=== PATIENT | male | born 1975 | race Caucasian/White ===

== ENCOUNTER → 2018-09-05 12:45 | Outpatient (CLI) | payer BC, SELFPAY | PROVIDERS: Family Provider Family Medicine; PCP Family Medicine; Referring Provider Family Medicine; Visit Provider Family Medicine | DX: Z46.89 Encounter for fitting and adjustment of other specified devices (principal) ==

== ENCOUNTER → 2018-12-19 | Outpatient (CLI) | payer BC, SELFPAY ==
[2018-10-01 17:47] VITALS: BMI 34.5
[2018-12-19 08:07] LABS: Absolute Lymphocyte Count 0.96 X10^3/ul (0.83-4.51); Absolute Neutrophil Count 2.4 X10^3/uL (2.0-7.7); Basophil# 0.04 X10^3/uL; Eosinophil# 0.03 X10^3/uL; Eosinophils% 0.7 % (0-5); Hematocrit 43.5 % (40-54); Hemoglobin 15.1 g/dl (13.0-16.5); Lymphocyte # 0.96 X10^3/ul (4.0); Lymphocyte % 22.9 % (19-41); Mean Corp Hgb Conc 34.7 g/gl (32-36); Mean Corpuscular Hgb 31.6 pg (27.0-32.0); Mean Platelet Vol. 9.4 fl (6.2-12.0); Monocyte# 0.75 X10^3/uL; Monocyte% 17.9 % (0-10); Neutrophil % 57.3 % (47-70); Platelet Count 115 K/mm3 (150-450); RBC Distribution Width CV 11.7 % (11.6-14.6); RBC Distribution Width SD 38.7 fl (35.1-43.9); Red Blood Count 4.78 M/mm3 (4.6-6.2); White Blood Count 4.2 K/mm3 (4.4-11.0)
[2018-12-19 08:09] LABS: POSITIVE COUNT NO; POSITIVE DIFFERENTIAL NO; POSITIVE MORPHOLOGY NO
[2018-12-19 08:22] LABS: Hemoglobin A1c 4.9 % (4.2-6.3)
[2018-12-19 08:43] LABS: ALB/GLOB Ratio 0.9 RATIO (0.9-2.4); AST(SGOT) 67 U/L (15-37); Alanine Aminotransfer ALT/SGPT 78 U/L (16-61); Albumin, Serum 3.5 g/dL (3.2-5.0); Alkaline Phosphatase 59 U/L (45-117); Anion Gap 9 (5-15); BUN 15 mg/dL (7-18); BUN/Creat Ratio 15.6 RATIO (10-20); Calcium,Total 8.2 mg/dL (8.5-10.1); Chloride 107 mmol/L (98-107); Cholesterol 178 mg/dL (200); Creatinine, Serum 0.96 mg/dL (0.70-1.30); EST Glomerular Filtration Rate 90 mL/min (>60); Est Glom Filt Rate - Afr Amer 109 mL/min (>60); Globulin 3.8 g/dL (2.2-4.2); Glucose 98 mg/dL (74-106); High Density Lipoprotein 31 mg/dL; Potassium 3.8 mmol/L (3.5-5.1); Protein, Total 7.3 g/dL (6.4-8.2); Sodium Level 140 mmol/L (136-145); Triglycerides 164 mg/dL; Very Low Density Lipoprotein 33 mg/dL (5-40)
== END | disposition home or self-care (01) ==
LOC: LAB 06:49
PROVIDERS: Family Provider Internal Medicine; PCP Internal Medicine; Referring Provider Internal Medicine; Visit Provider Internal Medicine
DX: G47.30 Sleep apnea, unspecified (principal); E66.9 Obesity, unspecified
CPT/HCPCS: 36415; 80053; 80061; 83036; 85025

== ENCOUNTER 2021-07-14 08:30 | Outpatient (CLI) | payer BC, SELFPAY ==
--- NOTE | 2021-07-14 08:33 | RAD_ITS ---
STUDY: X-RAY - RIGHT FOOT CLINICAL: Male, 46 years old. Stepped on nail. Pain. TECHNIQUE: 2 view(s) of the foot. COMPARISON: None. FINDINGS: Small superior calcaneal spur. Mild arthrosis of the midfoot. Normal metatarsi. Mild arthrosis of the MTP and IP joints. The soft tissue structures are unremarkable. RAD/Foot 2 Views IMPRESSION: Calcaneal spur with mild osteoarthrosis. No radiopaque foreign body. Electronically Signed: Rebel Pereira MD at 9:50 EST , Service support ,
== END 2021-07-14 23:59 | disposition short-term general hospital (02) ==
LOC: MTRAD 08:33
PROVIDERS: PCP Internal Medicine; Referring Provider Nurse Practitioner Family; Visit Provider Nurse Practitioner Family
DX: S99.921A Unspecified injury of right foot, initial encounter (principal); W45.0XXA Nail entering through skin, initial encounter; M77.31 Calcaneal spur, right foot; M19.071 Primary osteoarthritis, right ankle and foot
CPT/HCPCS: 73620

== ENCOUNTER 2021-07-18 10:14 | Outpatient (CLI) | payer BC, SELFPAY ==
[2021-07-18 12:11] LABS: Absolute Lymphocyte Count 1.88 X10^3/uL (0.83-4.51); Absolute Neutrophil Count 3.1 X10^3/uL (2.0-7.7); Basophil# 0.05 X10^3/uL; Basophil% 0.9 % (0-1); Eosinophil# 0.25 X10^3/uL; Eosinophils% 4.4 % (0-5); Hematocrit 42.2 % (40-54); Hemoglobin 13.8 g/dL (13.0-16.5); Lymphocyte # 1.88 X10^3/ul (0.83-4.51); Lymphocyte % 32.8 % (19-41); Mean Corp Hgb Conc 32.7 g/dL (32-36); Mean Corpuscular Hgb 31.7 pg (27.0-32.0); Mean Platelet Vol. 9.6 fl (6.2-12.0); Monocyte# 0.48 X10^3/uL; Monocyte% 8.4 % (0-10); NRBC Flagged by Analyzer 0 % (0-5); Neutrophil # 3.05 X10^3/uL (2.7-7.7); Neutrophil % 53.2 % (47-70); Platelet Count 241 K/mm3 (150-450); RBC Distribution Width CV 11.6 % (11.6-14.6); RBC Distribution Width SD 41.8 fl (35.1-43.9); Red Blood Count 4.35 M/mm3 (4.6-6.2); White Blood Count 5.7 K/mm3 (4.4-11.0)
[2021-07-18 12:39] LABS: ALB/GLOB Ratio 1.2 RATIO (0.9-2.4); AST(SGOT) 37 U/L (15-37); Alanine Aminotransfer ALT/SGPT 46 U/L (16-61); Alkaline Phosphatase 56 U/L (45-117); Anion Gap 4 (5-15); BUN 23 mg/dL (7-18); BUN/Creat Ratio 29.7 RATIO (10-20); Calcium,Total 9.2 mg/dL (8.5-10.1); Chloride 109 mmol/L (98-107); Creatinine, Serum 0.77 mg/dL (0.70-1.30); EST Glomerular Filtration Rate 114 mL/min (>60); Est Glom Filt Rate - Afr Amer 138 mL/min (>60); Globulin 3.4 g/dL (2.2-4.2); Glucose 95 mg/dL (74-106); Potassium 4.6 mmol/L (3.5-5.1); Protein, Total 7.4 g/dL (6.4-8.2); Sodium Level 142 mmol/L (136-145); T4 Free Direct 1.13 ng/dL (0.76-1.46); Thyroid Stim Hormone (TSH) 1.26 uIU/mL (0.358-3.74)
== END 2021-07-18 23:59 | disposition short-term general hospital (02) ==
LOC: BIMLAB 10:15
PROVIDERS: PCP Internal Medicine; Referring Provider Internal Medicine; Visit Provider Internal Medicine
DX: F41.9 Anxiety disorder, unspecified (principal); F32.A Depression, unspecified
CPT/HCPCS: 36415; 80053; 84439; 84443; 85025

== ENCOUNTER → 2024-01-10 | Outpatient (CLI) | payer OTHER, SELFPAY ==
[2024-01-10 16:53] LABS: Absolute Lymphocyte Count 2.11 X10^3/uL (0.83-4.51); Absolute Neutrophil Count 4.8 X10^3/uL (2.0-7.7); Basophil# 0.07 X10^3/uL; Basophil% 0.9 % (0-1); Eosinophil# 0.33 X10^3/uL; Eosinophils% 4.1 % (0-5); Hematocrit 43.1 % (40-54); Hemoglobin 14.2 g/dL (13.0-16.5); Lymphocyte # 2.11 X10^3/ul (0.83-4.51); Lymphocyte % 26.1 % (19-41); Mean Corp Hgb Conc 32.9 g/dL (32-36); Mean Corpuscular Hgb 32.1 pg (27.0-32.0); Mean Corpuscular Volume 97.3 fL (80-94); Mean Platelet Vol. 9.3 fl (6.2-12.0); Monocyte# 0.73 X10^3/uL; NRBC Flagged by Analyzer 0 % (0-5); Neutrophil # 4.83 X10^3/uL (2.7-7.7); Neutrophil % 59.7 % (47-70); Platelet Count 258 K/mm3 (150-450); RBC Distribution Width CV 12.2 % (11.6-14.6); RBC Distribution Width SD 43.9 fl (35.1-43.9); Red Blood Count 4.43 M/mm3 (4.6-6.2); White Blood Count 8.1 K/mm3 (4.4-11.0)
[2024-01-10 17:13] LABS: ALB/GLOB Ratio 1.1 RATIO (0.9-2.4); AST(SGOT) 39 U/L (15-37); Alanine Aminotransfer ALT/SGPT 50 U/L (16-61); Albumin, Serum 3.8 g/dL (3.2-5.0); Alkaline Phosphatase 60 U/L (45-117); Anion Gap 5 (5-15); BUN 20 mg/dL (7-18); BUN/Creat Ratio 16.1 RATIO (10-20); Calcium,Total 9.2 mg/dL (8.5-10.1); Chloride 110 mmol/L (98-107); Cholesterol 186 mg/dL (200); Creatinine, Serum 1.24 mg/dL (0.70-1.30); EST Glomerular Filtration Rate 65 mL/min (>60); Est Glom Filt Rate - Afr Amer 79 mL/min (>60); Globulin 3.5 g/dL (2.2-4.2); Glucose 108 mg/dL (74-106); High Density Lipoprotein 46 mg/dL; PSA,Total - Annual Screen 0.35 ng/mL (0.00-4.00); Potassium 3.8 mmol/L (3.5-5.1); Protein, Total 7.3 g/dL (6.4-8.2); Sodium Level 140 mmol/L (136-145); Triglycerides 184 mg/dL; Very Low Density Lipoprotein 37 mg/dL (5-40)
[2024-01-16 11:09] LABS: Testosterone, % Free 2.41 % (1.50-4.20); Testosterone, Free 7.81 ng/dL (5.00-21.00); Testosterone, Total 324 ng/dL (264-916)
== END | disposition home or self-care (01) ==
LOC: BIMLAB 15:00
PROVIDERS: PCP Internal Medicine; Referring Provider Internal Medicine; Visit Provider Internal Medicine
DX: Z00.00 Encounter for general adult medical examination without abnormal findings (principal); N52.9 Male erectile dysfunction, unspecified
CPT/HCPCS: 36415; 80053; 80061; 84153; 84402; 84403; 85025; G0103

== ENCOUNTER 2024-06-08 10:00 | Day surgery (SDC) | payer OTHER, SELFPAY ==
[2024-06-08] VITALS (8 sets, daily range): BP systolic 104–149; BP diastolic 61–92; PULSE 57–71; RESP 16–18; TEMP 36.7–37.7; O2SAT 94–98; BMI 34.8
--- NOTE | 2024-06-08 11:00 | COLBX_PTH ---
PATIENT: ALFONSO DAY LOC: EN U#:[id number] AGE/SX: 49/M ROOM: RE06/08/[address]: Dr. John Lawton DO : 1975 BED: DIS: 06/08/2024 SPEC #: [id number] RECD: 06/08/24 12:29 STATUS: LINDA HARLAN #: [id number] LILIYA: 06/08/24 11:[address]: John Lawton DEPT: SURGICAL PATHOLOGY RECD BY: Barrera Rodriguez ENTERED: 06/08/24 12:57 SP TYPE: COLON BX OTHR DR: Dr. Silvestre Stanley MD Tissues: A - Ascending colon B - Transverse colon C - Sigmoid colon biopsy D - Sigmoid colon biopsy E - Rectum, NOS Procedures: Surgery Specimen Level IV HEADER OPERATION: Colonoscopy with polypectomy and cautery PRE-OP DIAGNOSIS: Colon cancer screening TISSUE SUBMITTED: A- Ascending colon polyp, B- Transverse colon biopsy, C- Sigmoid colon biopsy,D- Sigmoid polyp, E- Rectal polyp biopsy MICROSCOPIC DIAGNOSIS A. Ascending colon polyp, biopsy: Fragments of tubular adenoma. B. Transverse colon, biopsy: Colonic mucosa with hyperplastic change. C. Sigmoid colon, biopsy: Fragments of colonic mucosa with focal hyperplastic change. D. Sigmoid colon polyp, biopsy: Fragments of tubular adenoma. E. Rectal polyp, biopsy: Fragments of tubular adenoma. Fragments of hyperplastic polyp. Sharon 06/09/2024 MICROSCOPIC DESCRIPTION Slides are reviewed. GROSS DESCRIPTION A. Received in fixative is one container labeled with the patient's name and designated Ascending colon polyp. The specimen consists of multiple irregular fragments of light combs soft tissue that in aggregate measure 1.5 x 0.7 x 0.1 cm. The specimen is totally submitted in one cassette. B. Received in fixative is one container labeled with the patient's name and designated Transverse colon biopsy. The specimen consists of one irregular fragment of light combs soft tissue that measures 0.6 x 0.5 x 0.1 cm. The specimen is totally submitted in one cassette. C. Received in fixative is one container labeled with the patient's name and designated Sigmoid colon biopsy. The specimen consists of two irregular fragments of light combs soft tissue that in aggregate measure 0.7 x 0.6 x 0.1 cm. The specimen is totally submitted in one cassette. D. Received in fixative is one container labeled with the patient's name and designated Sigmoid polyp. The specimen consists of multiple irregular fragments of light combs soft tissue that in aggregate measure 1.0 x 0.6 x 0.1 cm. The specimen is totally submitted in one cassette. E. Received in fixative is one container labeled with the patient's name and designated Rectal polyp. The specimen consists of multiple irregular fragments of light combs soft tissue that in aggregate measure 1.0 x 0.5 x 0.1 cm. The specimen is totally submitted in one cassette. 06/08/2024 TC:5 CPT:04209k4
--- NOTE | 2024-06-08 11:00 | PCM.PRE.AN2 ---
ASA Classification* ASA Classification ASA Classification: 2 Assessment & Plan Anesthesia* Anesthesia Assessment Anesthesia Assessment: Discussed sedation and/or anesthesia options, risks, benefits, and alternatives with patient/parents/legal guardian/POA. Questions invited. The patient/parents/legal guardian/POA seems to understand and agrees to proceed with anesthesia plan. Reviewed the physical assessment, medical history, allergy history and patient home medications list prior to surgery/procedure/anesthetic and documented any changes. Performed airway and anesthesia risk assessments. Anesthesia Type Anesthesia Type: MAC History Source History Obtained from:: Patient and Chart Anesthesia Focused Assessment* Temperature: 98.0 F Pulse Rate: 67 Blood Pressure: 149/92 Respiratory Rate: 16 Pulse Ox: 98 Oxygen Delivery Method: Room Air Airway Assessment Mouth opens: >3 cm Mallampati Score: II Teeth Condition: Intact Neck Range of motion (ROM): Limited ROM (Somewhat decreased extension) Focused Labs Anesthesia Preop lab: CBC WBC 8.1 K/mm3 (4.4-11.0) 01/10/24 15:00 RBC 4.43 M/mm3 (4.6-6.2) L 01/10/24 15:00 Hgb 14.2 g/dL (13.0-16.5) 01/10/24 15:00 Hct 43.1 % (40-54) 01/10/24 15:00 Plt Count 258 K/mm3 (150-450) 01/10/24 15:00 CHEMISTRY Potassium 3.8 mmol/L (3.5-5.1) 01/10/24 15:00 Sodium 140 mmol/L (136-145) 01/10/24 15:00 BUN 20 mg/dL (7-18) H 01/10/24 15:00 Creatinine 1.24 mg/dL (0.70-1.30) 01/10/24 15:00 Glucose 108 mg/dL (74-106) H 01/10/24 15:00 TSH 1.26 uIU/mL (0.358-3.74) 07/18/21 10:15 COAG Pre-Assessment Diagnosis/Proposed Procedure Planned Operative Procedure(s): cscope Anesthesia History Anesthesia History - hide shaker: Anesthesia History - hide shaker Hx Hospitalization No 06/03/24 15:16 Any Problems With Anesthesia No 06/03/24 15:16 Cholinesterase deficiency No 06/03/24 15:16 You/Your Family Experience No 06/03/24 15:16 fever (hyperthermia) with Relationship Recent Exposure to Contagious No 06/08/24 10:20 Disease Does patient have nerve No 06/03/24 15:16 stimulator Patient instructed to have device shut off --Does patient have Pacemaker No 06/08/24 10:20 or ICD? When Was Last Pacemaker Check QUESTION #4 FULL TEXT: You/Your Family Experience fever (hyperthermia) with Anesthesia Last Oral Intake Last Oral intake: Last Oral Intake NPO since 07:00 06/08/24 10:20 Meds taken in AM with sips of No 06/08/24 10:20 water? Meds patient instructed to take am of surgery Any additional information?: Yes NPO since: 08:00 (Black coffee at 8 AM.) Meds taken in AM with sips of water?: Yes PONV PONV - hide shaker: PONV - hide shaker Female No 06/03/24 15:16 HX of Motion Sickness No 06/03/24 15:16 HX of N/V After Surgery No 06/03/24 15:16 Non-Smoker No 06/03/24 15:16 Duration of Surgery greater No 06/03/24 15:16 than 60 minutes Number of Risk Factors PONV Score Height & Weight Height & Weight: Anesthesia: Height & Weight Height 5 ft 10 in 06/08/24 10:20 Weight: 110.042 kg 06/08/24 10:20 Body Mass Index (BMI) 34.8 06/08/24 10:20 Respiratory Assessment Respiratory Assessment - hide shaker: Respiratory Tract Infection Hx - hide shaker Hx Respiratory Tract Infection No 06/03/24 15:16 STOP Sleep Apnea STOP Sleep Apnea - hide shaker: STOP Sleep Apnea - hide shaker Hx Hypertension No 06/03/24 15:16 Hx Sleep Apnea Yes 06/03/24 15:16 CPAP Yes 06/03/24 15:16 BIPAP No 06/03/24 15:16 Do you snore loudly (louder No 06/03/24 15:16 than talking or can be heard Do you often feel tired/ No 06/03/24 15:16 fatigued/ sleepy during daytime? Has anyone observed you stop No 06/03/24 15:16 breathing during sleep? STOP Results Positive 06/03/24 15:16 QUESTION #5 FULL TEXT : Do you snore loudly (louder than talking or can be heard through closed doors)? Tobacco Use History Tobacco Use History - hide shaker: Tobacco Use History - hide shaker Tobacco Use Smoking Status Current every day smoker 06/03/24 15:16 Hx Tobacco Use Yes 06/03/24 15:16 Years Smoking Packs Smoked per Day 0.5 06/03/24 15:16 Smoking Cessation Date was within the last 15 years Hx Smoking Cessation Date Hx Smoking Cessation Counseling Any additional information?: Yes Smoking Status: Current every day smoker (Patient did not smoke today.) Hematologic Medial History Hematologic Hx - hide shaker: Hematologic Medical Hx - warp hanger Hx of Blood Transfusion No 06/03/24 15:16 Hx of Transfusion in last 3 No 06/03/24 15:16 Months Date of Last Transfusion (if within last 3 months) Ever experience any problems No 06/03/24 15:16 with transfusion(s)? Specify any problems Hx of Preganancy in last 3 N/A 06/03/24 15:16 Months Nurse Filling Out Transfusion NBUCHER 06/03/24 15:16 & Questions: Date: 06/03/24 06/03/24 15:16 Time: 15:17 06/03/24 15:16 Patient unable to answer at this time (ie. confused, unrespo /Reproduction History /Reproductive History - hide shaker: /Reproductive Hx- hide shaker Hx Now No 06/03/24 15:16 Gestational Age (in weeks): EDC: Hx Hx Para Hx Section SAB No 06/03/24 15:16 PFSH Medical History Anxiety Alcohol use Smoker History of stress test Bilateral shoulder pain Performance anxiety Erectile dysfunction Colon cancer screening Preventative health care Insomnia Anxiety and depression Sleep apnea Home Medications ?Medication ?Instructions ?Recorded ?Last Taken ?Type sildenafil 50 mg tablet 50 mg PO DAILY PRN sexual activity 05/15/24 Unknown Rx #30 tabs tadalafil 5 mg tablet (Cialis) 5 mg PO QDAY #30 tabs 05/15/24 06/08/24 Rx Allergy/AdvReac Type Severity Reaction Status Date / Time Penicillins Allergy Unknown PT UNSURE Verified 06/03/24 15:14 OF REACTION Family History Grandfather Heart disease Myocardial infarction Uncle Cancer Surgical History History of vasectomy History of hernia repair History of appendectomy Social History current occupational status: employed 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
--- NOTE | 2024-06-08 11:02 | PCM.HP.STD ---
[facility] - General General Date of Admission: 06/08/24 Date of Service: 06/08/24 Chief Complaint: Screening colonoscopy [facility] Narrative ALFONSO DAY, is a 49 M who presents today for screening colonoscopy. He has never had a colonoscopy in the past. He has past medical history of tobacco abuse, obesity and mild anxiety depression. He also has a past medical history of obstructive sleep apnea. [facility] Medical History (Updated 06/03/24 @ 15:22 by Kelsey Tyler) Anxiety Alcohol use Smoker History of stress test Bilateral shoulder pain Performance anxiety Erectile dysfunction Colon cancer screening Preventative health care Insomnia Anxiety and depression Sleep apnea Home Medications ?Medication ?Instructions ?Recorded ?Last Taken ?Type sildenafil 50 mg tablet 50 mg PO DAILY PRN sexual activity 05/15/24 Unknown Rx #30 tabs tadalafil 5 mg tablet (Cialis) 5 mg PO QDAY #30 tabs 05/15/24 Unknown Rx Allergy/AdvReac Type Severity Reaction Status Date / Time Penicillins Allergy Unknown PT UNSURE Verified 06/03/24 15:14 OF REACTION Family History Grandfather Heart disease Myocardial infarction Uncle Cancer Surgical History (Updated 06/03/24 @ 15:22 by Kelsey Tyler) History of vasectomy History of hernia repair History of appendectomy Social History current occupational status: employed 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 Smoking Status: Current every day smoker tobacco type: cigarettes alcohol intake: former substance use type: does not use what type of physical activity do you participate in: walking ROS Review of Systems ROS Unobtainable: other Constitutional Constitutional: Denies fatigue, fever(s), poor appetite, weight gain or weight loss ENT HEENT: Denies mouth lesions Cardiovascular Cardiovascular: Denies abdominal bloating, abdominal edema or abdominal pain Respiratory/Chest Respiratory/Chest: Denies change in mental status, change in phlegm color, chest congestion or chest tightness Gastrointestinal Gastrointestinal: Denies belching, bloating, change in bowel habits, change in stool character, chewing difficulty, coffee ground emesis, constipation, cramping, diarrhea, dyspepsia, dysphagia, early satiety, excessive flatus, fecal incontinence, heartburn, hematemesis, hematochezia, hemorrhoids, loose stools, melena, nausea, odynophagia, rectal bleeding, tenesmus, vomiting or weight changes Genitourinary Genitourinary: Denies abdominal discomfort, burning urination or itching Musculoskeletal Musculoskeletal: Reports as per HPI; Denies muscle weakness or myalgias Integumentary Integumentary: Denies jaundice Neurologic Neurologic: Denies lack of coordination or weakness Psychiatric Psychiatric: Denies confusion, depression, memory loss, mood swings, paranoia or suicidal ideation Endocrine Endocrinology: Denies systems reviewed and no addt'l complaints, except as documented Hematologic/Lymphatic Hematologic/Lymphatic: Denies anemia, easy bleeding, easy bruising or lymphadenopathy Allergic/Immunologic Allergic/Immunologic: Denies systems reviewed and no addt'l complaints, except as documented Vital Signs Vital Signs Vital Signs: 06/08/24 10:20 06/08/24 10:20 Temperature 98.0 F Temperature Source Temporal Pulse Rate 67 Respiratory Rate 16 Respiratory Pattern Normal Blood Pressure 149/92 H Blood Pressure Mean 111 Blood Pressure Source Monitor Blood Pressure Position Semi-Fowlers Blood Pressure Location Left Arm Pulse Ox 98 Oxygen Delivery Method Room Air Weight Weight: 242 lb 9.6 oz Body Mass Index (BMI) 34.8 Physical Exam Const alert General Appearance: cooperative Orientation / Consciousness: oriented to person HEENT hearing grossly normal bilaterally Head and Scalp: normal to inspection Face and Sinus: face symmetric Nose: external nose normal Mouth: oral and palatal mucosa normal Eyes conjunctivae normal General Eye: normal appearance of both eyes Neck full ROM General: normal visual inspection Lymph Lymphatic: no lymphadenopathy noted Chest inspection of chest normal and palpation of chest normal Chest: symmetrical chest wall rise Resp normal respiratory effort Effort and Inspection: able to speak in complete sentences Cardio regular rate GI non-distended Percussion: normal to percussion Rectal Exam: deferred Neuro Speech: speech normal Gait (Neuro): normal gait Assessment & Plan Assessment/Plan (1) Colon cancer screening: PLAN: He was explained alternatives, risk and benefits include not withstanding bleeding, infection, sepsis, perforation, need for return to . He will have an ASA of 3.
--- NOTE | 2024-06-08 11:57 | OP.CCLET_ITS ---
06/08/2024 Silvestre Stanley MD [address] [place] [address] [place] [address] Re : Colonoscopy procedure for Ronny Howard Dear Dr. Stanley This procedure was performed on Saturday, June 08, 2024. My impressions and recommendations are as follows: Impressions : - Diverticulosis in the recto-sigmoid colon and in the sigmoid colon. Biopsied. - Three 1 to 2 mm polyps in the rectum and in the sigmoid colon, removed with a jumbo cold forceps. Resected and retrieved. - Two 1 to 2 mm polyps in the sigmoid colon and in the ascending colon, removed with a hot snare. Resected and retrieved. Recommendations : - Repeat colonoscopy in 3 years for surveillance. - Continue present medications. My findings are described in the full procedure note, which is enclosed. If I can be of further assistance, please feel free to contact me at . Sincerely, John Lawton, 06/08/2024 11:56:59 AM This report has been signed electronically.
--- NOTE | 2024-06-08 11:57 | OP.COLON_ITS ---
Patient Name: Ronny Howard Procedure Date: 06/08/2024 11:06 AM Date of : 1975 Age: 49 Procedure: Colonoscopy Indications: Screening for colorectal malignant neoplasm Providers: John Lawton DO Referring MD: Silvestre Stanley MD Medicines: Monitored Anesthesia Care Patient Profile: This is a 49 year old male. Refer to note in patient chart for documentation of history and physical. Last Colonoscopy: none. The patient's first colonoscopy is today. Complications: No immediate complications. Procedure: Pre-Anesthesia Assessment: - Prior to the procedure, a History and Physical was performed, and patient medications and allergies were reviewed. The patient is competent. The risks and benefits of the procedure and the sedation options and risks were discussed with the patient. All questions were answered and informed consent was obtained. Patient identification and proposed procedure were verified by the physician in the pre-procedure area. Mental Status Examination: alert and oriented. Airway Examination: normal oropharyngeal airway and neck mobility. Respiratory Examination: clear to auscultation. CV Examination: normal. Prophylactic Antibiotics: The patient does not require prophylactic antibiotics. Prior Anticoagulants: The patient has taken no anticoagulant or antiplatelet agents except for NSAID medication. ASA Grade Assessment: II - A patient with mild systemic disease. After reviewing the risks and benefits, the patient was deemed in satisfactory condition to undergo the procedure. The anesthesia plan was to use monitored anesthesia care (MAC). Immediately prior to administration of medications, the patient was re-assessed for adequacy to receive sedatives. The heart rate, respiratory rate, oxygen saturations, blood pressure, adequacy of pulmonary ventilation, and response to care were monitored throughout the procedure. The physical status of the patient was re-assessed after the procedure. After I obtained informed consent, the scope was passed under direct vision. Throughout the procedure, the patient's blood pressure, pulse, and oxygen saturations were monitored continuously. The Colonoscope was introduced through the anus and advanced to the cecum, identified by appendiceal orifice and ileocecal valve. The colonoscopy was performed without difficulty. The patient tolerated the procedure well. The quality of the bowel preparation was adequate. Scope In: 11:22:58 AM Scope Withdrawal Time 0 hours 23 minutes 5 seconds Scope Out: 11:49:11 AM Total Procedure Duration Time 0 hours 26 minutes 13 seconds Findings: The perianal and digital rectal examinations were normal. A few small and large-mouthed diverticula were found in the recto-sigmoid colon and sigmoid colon. Biopsies were taken with a cold forceps for histology. Verification of patient identification for the specimen was done. Estimated blood loss was minimal. Three sessile polyps were found in the rectum and sigmoid colon. The polyps were 1 to 2 mm in size. These polyps were removed with a jumbo cold forceps. Resection and retrieval were complete. Verification of patient identification for the specimen was done. Estimated blood loss was minimal. Two sessile polyps were found in the sigmoid colon and ascending colon. The polyps were 1 to 2 mm in size. These polyps were removed with a hot snare. Resection and retrieval were complete. Verification of patient identification for the specimen was done. Estimated blood loss was minimal. For location marking, one hemostatic clip was successfully placed. 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 There was no bleeding at the end of the procedure. Impression: - Diverticulosis in the recto-sigmoid colon and in the sigmoid colon. Biopsied. - Three 1 to 2 mm polyps in the rectum and in the sigmoid colon, removed with a jumbo cold forceps. Resected and retrieved. - Two 1 to 2 mm polyps in the sigmoid colon and in the ascending colon, removed with a hot snare. Resected and retrieved. Recommendation: - Repeat colonoscopy in 3 years for surveillance. - Continue present medications. Procedure Code(s): --- Professional --- 80368, Colonoscopy, flexible; with removal of tumor(s), polyp(s), or other lesion(s) by snare technique 25216, 59, Colonoscopy, flexible; with biopsy, single or multiple 65193, Unlisted procedure, colon CPT copyright 2021 [employer]. All rights reserved. The codes documented in this report are preliminary and upon sociology research assistant review may be revised to meet current compliance requirements. John Lawton DO 06/08/2024 11:56:59 AM This report has been signed electronically. Number of Addenda: 0 Note Initiated On: 06/08/2024 11:06 AM
--- NOTE | 2024-06-08 11:58 | PCM.POST.ANE ---
Anesthesia: Postop Eval I Current Vital Signs Temperature: 98.6 F Pulse Rate: 70 Blood Pressure: 104/61 Respiratory Rate: 16 Pulse Ox: 96 Oxygen Delivery Method: Room Air Assessment Airway patent: Yes Spontaneous unlabored respirations: Yes Mental status: Awake and Calm nausea: No Vomiting: No Anesthesia Complication: No Fluid Hydration Crystalloid volume administer (ml): 70 Total IV fluid infused: 70 Progress Note Anesthesia document: Postop Eval 1 completed: Yes
--- NOTE | 2024-06-08 17:50 | PCM.POSTANE2 ---
Anesthesia Postop Eval I Sum Postop Eval Completion status Anesthesia document: Postop Eval 1 completed: Yes Anesthesia Postop Eval I Summary Anesthesia Postop Eval I Summary: Anesthesia Postop Eval I: Assessment Summary Airway patent Yes 06/08/24 11:59 [email or web address] Spontaneous unlabored Yes 06/08/24 11:59 [email or web address] respirations Mental status Awake,Calm 06/08/24 11:59 [email or web address] nausea No 06/08/24 11:59 [email or web address] Vomiting No 06/08/24 11:59 [email or web address] Anesthesia Postop Eval I: Fluid Summary Crystalloid volume administer 70 06/08/24 11:59 [email or web address] (ml) Colloids volume administered ( ml) Blood Product volume administered (ml) Total IV fluid infused 70 06/08/24 11:59 [email or web address] Anesthesia Postop Eval I: Summary Notes Anesthesia Complication No 06/08/24 11:59 [email or web address] Anesthesia Complication Comment: Post-operative progress note Anesthesia: Postop Eval II Evaluation Mental status: Awake Pain Level: 0 nausea: No Vomiting: No
== END 2024-06-08 12:50 | disposition home or self-care (01) ==
LOC: EN 10:01 → AC 10:03
PROVIDERS: PCP Internal Medicine; Referring Provider Internal Medicine; Visit Provider Internal Medicine Gastroenterology
PROC: 0DJD8ZZ Inspection of Lower Intestinal Tract, Via Natural or Artificial Opening Endoscopic (ICD-10-PCS; CPT 45378; principal; 2024-06-08 10:55)
DX: Z12.11 Encounter for screening for malignant neoplasm of colon (principal); K57.30 Diverticulosis of large intestine without perforation or abscess without bleeding; E66.9 Obesity, unspecified; F17.210 Nicotine dependence, cigarettes, uncomplicated; D12.2 Benign neoplasm of ascending colon; D12.5 Benign neoplasm of sigmoid colon; D12.7 Benign neoplasm of rectosigmoid junction
CPT/HCPCS: 45385; 45380; 88305; A4216; J2405

== ENCOUNTER 2025-01-14 07:00 | Outpatient (RCR) | payer OTHER, SELFPAY ==
--- NOTE | 2024-12-22 14:53 | HP.PTEVAL_ITS ---
Patient's Visit Information Visit Information Visit Information: ALFONSO DAY is a 49 year old M referred to Physical Therapy by Dr. Harlan Gaitan MD with a diagnosis of Right Knee Pain. Date of Evaluation: 12/22/24 Physical Therapist: Eunice Collins DPT Visit Plan Frequency: 2x /Week Duration: 4 Weeks Plan: Focus on LE and core strength/stabilization Subjective Subjective: Patient reports that he has right knee pain- he has had knee pain for 2 weeks- insidious onset. The pain is located in the whole knee- he sat with ice on it and it was okay the next day. [place] up in the river on uneven surfaces- it was pretty sore. Worst: 7/10 Agg: uneven surfaces, everything. Eases: ice. Best: 0/10. The pain is mostly on the inside and the whole thing feels tight after the injection. Dr. Gaitan gave him an injection today and took x-rays. When he goes a august it feels like the leg will fall off and its coming apart. No N/T in the foot. Describes the pain in the knee as dull and achy but does get a sharp pain. Feels like the knee was better but he still has the appointment- has multiple nurses in his family and they wanted him to get checked out. X-rays which showed mild OA. 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 Sleep: not disturbed. No radiating pain into his hip or back. PMHx/Meds: no change since saw ortho. Objective Objective: Posture: forward head, rounded shoulders Gait: slightly antalgic- decreased stance on right LE with poor heel/toe due to lack of extension in right knee SLS: 5 sec then LOB increased sway with reports of discomfort HR/TR: able with tightness and discomfort Stairs: asc/desc single HR- reports discomfort- poor control with descent ROM: lacking 5 degrees of extension, Flexion to 120 degrees with pain at end range Strength: Ankle: 5/5, Knee: Left: Flexion: 58 Extn: 99 Right: Flexion: 23 Extn: 52 with pain Hip: 4/5 throughout, Core: fair Flex: HS: moderate, Gastroc: moderate Testing may be skewed due to injection approx 3 hours ago Balance/Special Test Scores Lower Extremity Functional Score: 23 Goals Goal 1:: Patient will be I with HEP and progression Goal Time Frame: 4-6 Weeks Goal 2:: Patient will SLS for 30 sec without LOB Goal Time Frame: 4-6 Weeks Goal 3:: Patient will asc/desc 8 stairs recip without HR and pain Goal Time Frame: 4-6 Weeks Goal 4:: Patient will report 80% improvement Goal Time Frame: 4-6 Weeks Rehabilitation Potential Physical Therapy Diagnosis: Patient presents with decreased LE and core strength/stabilization, flex and muscular endurance leading to abnormal gait and increased pain Rehabilitation Potential: Good Anticipated Interventions Patient/Client Instruction: Educate patient on: Benefits of Fitness Program Therapeutic Exercise to Include: Strength training, Endurance training, Balance training, Coordination, Agility training, Body mechanics, Postural training, Flexibilty training, Gait and locomotor training, Neuromotor development, Dynamic Lumbar Stabilization and Scapular Strength/Stabilization For the Purpose of:: To improve muscle performance and motor function TENS: Yes Cryotherapy (ice pack, ice massage): Yes Thermo therapy (hot pack): Yes Ultrasound (thermal/non thermal): Yes Text: Thank you for the opportunity to evaluate your patient. For Medicare and Medicare HMO plans, please review the plan of care and approve it. It will need to be FAXED BACK to us at [phone] for Medicare purposes. For Medicare only, by signing this I certify the plan of care. Please let me know if there are questions or concerns regarding this plan of care. Physician Signature: __Date:
--- NOTE | 2025-01-14 07:30 | HP.PTDCSUM ---
Discharge Summary D/C summary: It has been my pleasure to treat ALFONSO DAY referred by Dr. Harlan Gaitan MD, with the diagnosis of Right Knee Pain for a total of 8 visit(s). Discharge Date: Please see the following information for a summary of their discharge status. Subjective Subjective: Patient reports that his knee is doing okay- he has muscle soreness in his thighs from Saturday. He generally does not have knee pain anymore it was a little achy last night. Overall Improvement % Improvement: 50 Objective Objective/Function: Posture: forward head, rounded shoulders Gait: no deviation noted SLS: 15 seconds HR/TR: able Stairs: asc/desc no HR ROM: 0-120 degrees Strength: Ankle: 5/5, Knee: Left: Flexion: 58 Extn: 82 Right: Flexion: 60 Extn: 88 with pain Hip: 4+/5 throughout, Core: fair Flex: HS: moderate, Gastroc: moderate Goals Goal 1:: Patient will be I with HEP and progression Goal Progress: Goal Met Goal 2:: Patient will SLS for 30 sec without LOB Goal Progress: Goal Met Goal 3:: Patient will asc/desc 8 stairs recip without HR and pain Goal Progress: Goal Met Goal 4:: Patient will report 80% improvement Goal Progress: Progressing Plan Plan: Discharge to I HEP D/C Information d/c sentence: If there are questions or concerns regarding this patient's physical therapy, please feel free to call me at [phone]. Thank you for the referral of this patient. Sincerely, Eunice Collins, DPT Balance/Gait/Functional tests Balance/Special Test Scores Lower Extremity Functional Score: 61 Improvement % Improvement: 50
== END 2025-01-14 19:00 | disposition home or self-care (01) ==
LOC: PT 07:00
PROVIDERS: PCP Internal Medicine; Referring Provider Orthopaedic Surgery Sports Medicine; Visit Provider Orthopaedic Surgery Sports Medicine
DX: M17.0 Bilateral primary osteoarthritis of knee (principal); M25.562 Pain in left knee; M25.561 Pain in right knee
CPT/HCPCS: 97110; 97162; 97164

== ENCOUNTER → 2025-01-18 | Outpatient (CLI) | payer OTHER, SELFPAY ==
[2025-01-18 12:42] LABS: Hematocrit 42.4 % (40-54); Hemoglobin 14.4 g/dL (13.0-16.5); Immature Granulocytes Count 0.010 X10^3/uL (0.0-0.0); Mean Corp Hgb Conc 34.0 g/dL (32-36); Mean Corpuscular Volume 96.8 fL (80-94); Mean Platelet Vol. 9.9 fl (6.2-12.0); NRBC Flagged by Analyzer 0 % (0-5); Platelet Count 198 K/mm3 (150-450); RBC Distribution Width CV 11.7 % (11.6-14.6); RBC Distribution Width SD 41.5 fl (35.1-43.9); Red Blood Count 4.38 M/mm3 (4.6-6.2); White Blood Count 6.6 K/mm3 (4.4-11.0)
[2025-01-18 13:29] LABS: AST(SGOT) 33 U/L (<=37); Alanine Aminotransfer ALT/SGPT 32 U/L (<=46); Albumin, Serum 4.5 g/dL (3.5-5.0); Alkaline Phosphatase 42 U/L (40-129); Anion Gap 12 (5-15); BUN 24 mg/dL (4-19); BUN/Creat Ratio 20.5 RATIO (10-20); Calcium,Total 9.7 mg/dL (7.6-11.0); Carbon Dioxide 22.8 mmol/L (21.0-32.0); Chloride 103 mmol/L (98-108); Cholesterol 215 mg/dL (<=200); Globulin 2.7 g/dL (2.2-4.2); Glucose 90 mg/dL (70-99); Low Density Lipoprotein Calc. 129 mg/dL; Potassium 4.3 mmol/L (3.3-5.1); Triglycerides 91 mg/dL; Very Low Density Lipoprotein 18 mg/dL (5-40); cholesterol:hdl ratio screen 3.17
== END | disposition home or self-care (01) ==
LOC: BIMLAB 08:57
PROVIDERS: PCP Internal Medicine; Referring Provider Internal Medicine; Visit Provider Internal Medicine
DX: I10 Essential (primary) hypertension (principal)
CPT/HCPCS: 36415; 80053; 80061; 85025

== ENCOUNTER → 2025-05-25 | Outpatient (CLI) | payer OTHER, SELFPAY ==
--- OUTSIDE RECORDS SUMMARY | 2025-05-25 11:40 | XMS RPT_ITS | CCD ---
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 Rivers Primary Care Provider Lizeth ISABEL, Dr. Rivers Attending Provider [phone] Lizeth ISABEL, Dr. Rivers Referring Provider [phone] Harlan Gaitan MD Attending Provider [phone] Yojana ISABEL, Dr. Tompkins Attending Provider [phone] Harlan Gaitan MD Referring Provider [phone] Sushila Smallwood Attending Provider [phone] Oleghe, Efewongbe Attending Unavailable Oleghe, Efewongbe Referring Unavailable Oleghe, Efewongbe Primary Care Unavailable Oleghe, Efewongbe Primary Care Unavailable Friend, John Consulting Unavailable Friend, John Attending Unavailable Oleghe, Efewongbe Referring Unavailable Harlan Gaitan Attending Unavailable Harlan Gaitan Referring Unavailable Oleghe, Efewongbe Primary Care Unavailable Oleghe, Efewongbe Primary Care Unavailable Oleghe, Efewongbe Attending Unavailable Oleghe, Efewongbe Referring Unavailable Oleghe, Efewongbe Attending Unavailable Oleghe, Efewongbe Referring Unavailable Oleghe, Efewongbe Primary Care Unavailable Sushila Gonzalez Attending Unavailable Oleghe, Efewongbe Referring Unavailable Oleghe, Efewongbe Primary Care Unavailable Oleghe, Efewongbe Primary Care Unavailable Oleghe, Efewongbe Referring Unavailable Harlan Gaitan Attending Unavailable Oleghe, Efewongbe Primary Care Unavailable Oleghe, Efewongbe Attending Unavailable Oleghe, Efewongbe Referring Unavailable Oleghe, Efewongbe Primary Care Unavailable John Lawton Attending Unavailable Oleghe, Efewongbe Referring Unavailable Oleghe, Efewongbe Primary Care Unavailable Oleghe, Efewongbe Attending Unavailable Oleghe, Efewongbe Referring Unavailable Oleghe, Efewongbe Primary Care Unavailable Oleghe, Efewongbe Attending Unavailable Oleghe, Efewongbe Referring Unavailable Turner Dial Attending Unavailable Oleghe, Efewongbe Primary Care Unavailable Harlan Gaitan Attending Unavailable Oleghe, Efewongbe Referring Unavailable Oleghe, Efewongbe Primary Care Unavailable Allergies Allergy Classification Reported Allergen(s) Allergy Type Date of Onset Reaction(s) Facility (7 sources) Penicillins Allergy to substance 5 PT UNSURE OF REACTION [facility] Comment on above: Childhood (1 source) Penicillins Drug allergy (disorder) 5 [facility] Repository Medications Current Medications Medication Drug Class(es) Dates Sig (Normalized) Sig (Original) amLODIPine 5 mg oral tablet (14 sources) Dihydropyridine Calcium Channel Cory Start: 07-20-2024 End: 10-19-2024 take 1 tablet by mouth once daily Amlodipine 5 mg tablet Active 5 mg PO daily 90 1 October 19, 2024 8:35am azithromycin 250 mg oral tablet (1 source) Macrolide Antimicrobial Start: 02-08-2025 Azithromycin (Zithromax) 250 mg tablet Active 0 PO .COMPLEX 6 0 February 08, 2025 12:00am For 250 mg dose pack: take 500 mg today (day 1), then 250 mg for 4 days (days 2-5) PO sildenafil 50 mg oral tablet (20 sources) Phosphodiesterase 5 Inhibitor Start: 01-18-2025 Sildenafil 50 mg tablet Active 25 mg PO DAILY as needed for sexual activity 20 30 2 January 18, 2025 12:25pm administer 30 minutes to 4 hours before activity Start: 07-20-2024 End: 01-18-2025 Sildenafil 50 mg tablet Disc ontinued 75 mg PO DAILY as needed for sexual activity 40 30 2 December 11, 2024 1:11pm January 18, 2025 12:26pm administer 30 minutes to 4 hours before activity Start: 2024 End: 07-20-2024 Sildenafil 50 mg tablet Disc ontinued 50 mg PO DAILY as needed for sexual activity 30 0 2024 10:59am July 20, 2024 1:16pm administer 30 minutes to 4 hours before activity Start: 01-10-2024 End: 2024 Sildenafil 25 mg tablet Disc ontinued 25 mg PO DAILY as needed for sexual activity 30 0 January 10, 2024 12:00am 2024 10:59am administer 30 minutes to 4 hours before activity Completed/Discontinued Medications Medication Drug Class(es) Dates Sig (Normalized) Sig (Original) aspirin 81 mg delayed release oral tablet (7 sources) Platelet Aggregation Inhibitor, Nonsteroidal Anti-inflammatory Drug Start: 07-12-2021 End: 01-10-2024 take 1 tablet by mouth once daily Aspirin 81 mg tablet,delayed release (DR/EC) Discontinued 81 mg PO DAILY July 12, 2021 1:00am January 10, 2024 2:26pm calcium ascorbate 500 mg oral tablet (7 sources) Start: 07-12-2021 End: 01-10-2024 take 1 tablet by mouth once daily Ascorbate Calcium (Vitamin C) 500 mg tablet Discontinued 500 mg PO DAILY July 12, 2021 1:00am January 10, 2024 2:26pm cephalexin 500 mg oral capsule (7 sources) Cephalosporin Antibacterial Start: 07-12-2021 End: 08-29-2021 take 1 capsule by mouth every eight hours Cephalexin 500 mg capsule Discontinued 500 mg PO Q8H 21 0 July 12, 2021 1:00am August 29, 2021 11:01am cholecalciferol 0.025 mg oral capsule (7 sources) Vitamin D Start: 07-12-2021 End: 01-10-2024 take 1 capsule by mouth once daily Cholecalciferol (Vitamin D3) 25 mcg (1,000 unit) capsule Discontinued 25 ug PO DAILY July 12, 2021 1:00am January 10, 2024 2:26pm doxycycline monohydrate 100 mg oral capsule (7 sources) Tetracycline-class Drug Start: 07-12-2021 End: 08-29-2021 take 1 capsule by mouth twice daily Doxycycline Monohydrate 100 mg capsule Discontinued 100 mg PO TWICE A DAY 20 0 July 12, 2021 1:00am March 1st, 2022 11:01am ibuprofen 600 mg oral tablet (7 sources) Nonsteroidal Anti-inflammatory Drug Start: 07-12-2021 End: 01-10-2024 take 1 tablet by mouth three times daily at mealtime for pain Ibuprofen 600 mg tablet Discontinued 600 mg PO THREE TIMES A DAY as needed for pain 30 July 12, 2021 1:00am January 10, 2024 2:26pm take with food Multivitamin tablet (7 sources) Start: 04-21-2024 End: 2024 Multivitamin tablet Discontinued 1 {tbl} PO daily April 21, 2024 12:00am 2024 10:32am sertraline 100 mg oral tablet (20 sources) Serotonin Reuptake Inhibitor Start: 08-29-2021 End: 01-10-2024 take 1 tablet by mouth once daily Sertraline 100 mg tablet Discontinued 100 mg PO DAILY 90 August 29, 2021 11:13am January 10, 2024 2:27pm Take 1 tablet daily Start: 07-18-2021 End: 08-29-2021 take 1 tablet by mouth once daily, then take 2 tablets by mouth once daily Sertraline 50 mg tablet Discontinued 50 mg PO DAILY 60 August 22, 2021 10:55am August 29, 2021 11:13am Take 1 tablet daily for 1 week then increase to 2 tablets daily tadalafil 5 mg oral tablet (20 sources) Phosphodiesterase 5 Inhibitor Start: 2024 End: 10-19-2024 take 1 tablet by mouth once daily Tadalafil (Cialis) 5 mg tablet Discontinued 5 mg PO daily 30 September 21, 2024 4:37pm October 19, 2024 8:35am traZODone hydrochloride 50 mg oral tablet (7 sources) Serotonin Reuptake Inhibitor Start: 07-18-2021 End: 01-10-2024 take 1 tablet by mouth at bedtime as needed Trazodone 50 mg tablet Discontinued 50 mg PO AT BEDTIME as needed for insomnia 30 July 18, 2021 1:00am January 10, 2024 2:27pm varenicline 1 mg oral tablet (7 sources) Partial Cholinergic Nicotinic Agonist Start: 10-01-2018 End: 12-29-2018 take 1 tablet by mouth once Varenicline Tartrate (Chantix Starting Month Box) 0.5 mg (11)- 1 mg (42) tablets,dose pack Discontinued 0 PO per package directions 53 0 October 01, 2018 12:00am December 29, 2018 1:29pm PO PER PKG DIR vitamin k1 5 mg oral tablet (7 sources) Warfarin Reversal Agent, Vitamin K Start: 07-12-2021 End: 01-10-2024 take 1 tablet by mouth once daily Phytonadione (Vitamin K1) 5 mg tablet Discontinued 5 mg PO DAILY July 12, 2021 1:00am January 10, 2024 2:27pm Problems Active Problems Problem Classification Problem Date Documented Date Episodic/Chronic Administrative/social admission (7 sources) Counseling procedure with explicit context; Translations: [Tobacco abuse counseling] 10-01-2018 Episodic Anxiety disorders (20 sources) Performance anxiety; Translations: [Other specified anxiety disorders] 10-19-2024 Chronic Essential hypertension (19 sources) Hypertensive disorder; Translations: [Essential (primary) hypertension] Onset: 01-21-2025 02-10-2024 Chronic Osteoarthritis (20 sources) Primary gonarthrosis, bilateral; Translations: [Bilateral primary osteoarthritis of knee] Onset: 12-22-2024 12-22-2024 Chronic Other male genital disorders (18 sources) Male erectile dysfunction, unspecified; Translations: [Erectile dysfunction] 2024 Chronic Other non-traumatic joint disorders (7 sources) Shoulder pain; Translations: [Pain in right shoulder] 2024 Episodic Other non-traumatic joint disorders (10 sources) Knee pain; Translations: [Right knee pain] Episodic Other nutritional; endocrine; and metabolic disorders (14 sources) Body mass index 30+ - obesity; Translations: [Obesity, unspecified] 10-01-2018 Chronic Other skin disorders (8 sources) Skin lesion; Translations: [Disorder of the skin and subcutaneous tissue, unspecified] 01-18-2025 Episodic Other upper respiratory infections (3 sources) Acute sinusitis; Translations: [Acute sinusitis, unspecified] Onset: 02-08-2025 02-08-2025 Episodic Residual codes; unclassified (7 sources) Sleep apnea; Translations: [Sleep apnea, unspecified] 10-01-2018 Chronic Residual codes; unclassified (1 source) Sleep apnea, unspecified; Translations: [Sleep apnea, unspecified] Onset: 04-26-2025 Chronic Residual codes; unclassified (7 sources) Insomnia; Translations: [Insomnia, unspecified] 08-29-2021 Episodic Unclassified (6 sources) M17.0 - Bilateral primary osteoarthritis of knee,M25.562 - Pain in left knee,M25.561 - Pain in right knee Unclassified (5 sources) Primary osteoarthritis of both knees Past or Other Problems Problem Classification Problem Date Documented Da te Episodic/Chronic Other non-traumatic joint disorders (20 sources) Pain in left knee; Translations: [Left knee pain] Onset: 12-22-2024 12-22-2024 Episodic Other non-traumatic joint disorders (1 source) Pain in right knee; Translations: [Pain in right knee] Onset: 12-22-2024 Episodic Other screening for suspected conditions (not mental disorders or infectious disease) (9 sources) Patient encounter status; Translations: [Encounter for screening for malignant neoplasm of colon] Onset: 06-22-2024 01-10-2024 Episodic Results Test Name Value Interpretation Reference Range Facility Internal Medicine Office Vis [facility] 04-26-2025 Internal Medicine Office Visit [facility] Internal Medicine [facility] [address] OFFICE VISIT Date of Service: 04/26/25 MR#: [id number] Acct: [id number] Name: RONNY DAY Rep #: [id number] : 1975 Provider: Dr. Silvestre rose MD Age/Sex: 49/M Location: [facility] [place] Status: Signed Intake Vital Signs 01/18/25 08:25 02/08/25 08:45 04/26/25 08:01 Height 5 ft 10 in 5 ft 10 in 5 ft 10 in Weight: 248 lb BMI 35.6 BP 132/80 H Blood Pressure Location Lt brachial Position Sitting Respiration 16 Pulse 71 Pulse Source Monitor Temp 97.1 F L Temp Source Temporal Pulse Oximetry (%) 96 Oxygen Delivery Method room air Intake Visit Reasons: 3 M FU Chief Complaint: FU Chronic Conditions Visitor Services Coordinator Required: No Accompanied by: Self Is patient in pain?: No Allergies Penicillins Allergy (Unknown, Verified 04/26/25 08:03) PT UNSURE OF REACTION Medications ???Medication ???Instructions ???Recorded ???Confirmed ???Type sildenafil 50 mg tablet 25 mg (1/2 x 50 mg) PO DAILY PRN 0 01/18/25 04/26/25 Rx sexual activity 1 month #20 tabs amlodipine 5 mg tablet 5 mg PO QDAY #90 tabs 04/26/25 Rx tadalafil 5 mg tablet (Cialis) 5 mg PO QDAY #90 tabs 04/26/25 Rx Nurse's Note: patient has stopped taking all medications for a couple of months and is unsure on starting back on medication [facility] Medical History Skin lesion Bilateral primary osteoarthritis of knee Left knee pain Right knee pain Anxiety Alcohol use Smoker History of stress test Bilateral shoulder pain Performance anxiety Erectile dysfunction Colon cancer screening Preventative health care Insomnia Anxiety and depression Sleep apnea Surgical History History of vasectomy History of hernia repair History of appendectomy Family History Grandfather Heart disease Myocardial infarction Uncle Cancer Social History current occupational status: employed 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 The patient discontinued amlodipine to assess if it was necessary, noting no significant difference in how he feels but observing that his BP seems a little higher, but not crazy. He is unsure if he still has the medication at home. 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 He reports that the medication works but prefers not to use it regularly. He mentions that he could take tadalafil daily and be okay but is concerned about potential side effects. He notes that his ED symptoms are manageable most of the time but worsen with stress, such as issues with his children or ex-partner. He experiences ED at least once a day and estimates that about 20% of the time, he either does not finish or it does not work for him. He does not consider this a significant issue. The patient received testosterone pellets but did not like them, finding them uncomfortable and causing prolonged pain. He can still feel a lump where they were inserted. He reports that his testosterone levels were in the 600s before receiving the pellets and questions why they were given to him. He mentions that his weight fluctuates, affecting his ED symptoms. Two months ago, he weighed 235 lbs, and now he is up to 248 lbs. The patient has been using a CPAP machine for a long time and uses it every day. He feels better- rested with it than without it but is unsure if it needs calibration or tuning. He obtained the machine from [employer], which is now out of business, and has been using supplies he took from them. His partner, a nurse, has been asking if he needs to change anything with the machine. He mentions that his MARIJA was severe. ROS Const Constitutional: No body ache, excessive sweating, fatigue, fever(s), frequent falls, headache(s), snoring, weakness, weight change, sleep problems or change in appetite Eyes Eyes: No blurry vision, change in vision, bulging eyes, floaters, visual disturbances, eye pain or Light sensitivity ENT ENT: No abnormal hearing, ear or mastoid pain, tinnitus, balance problems, nosebleed/epistaxis, nasal congestion, headache(s), neck pain or sore t (more content not included)... Normal [facility] Internal Medicine Office Vis jud 02-08-2025 Internal Medicine Office Visit [facility] [address] [place] [address] [place] [address] OFFICE VISIT Date of Service: 02/08/25 MR#: [id number] Acct: [id number] Name: RONNY DAY Rep #: [id number] : 1975 Provider: NIMESH wilson Age/Sex: 49/M Location: [facility] [place] Status: Signed Intake Vital Signs 01/21/25 08:02 02/08/25 08:45 Height 5 ft 10 in 5 ft 10 in Weight: 233 lb 232 lb 8 oz BMI 33.4 33.3 BP 120/60 Blood Pressure Location Lt brachial Position Sitting Respiration 18 Pulse 56 L Pulse Source Monitor Temp 97.4 F L Temp Source Temporal Pulse Oximetry (%) 97 Oxygen Delivery Method room air Intake Visit Reasons: Cough,headache Chief Complaint: Headache, Cough Visitor Services Coordinator Required: No Accompanied by: Self Is patient in pain?: No Allergies Penicillins Allergy (Unknown, Verified 02/08/25 08:40) PT UNSURE OF REACTION Medications ???Medication ???Instructions ???Recorded ???Confirmed ???Type amlodipine 5 mg tablet 5 mg PO QDAY #90 tabs 10/19/2405/25 Rx tadalafil 5 mg tablet (Cialis) 5 mg PO QDAY #90 tabs 10/19/2405/25 Rx sildenafil 50 mg tablet 25 mg (1/2 x 50 mg) PO DAILY PRN 0 01/18/25 02/08/25 Rx sexual activity 1 month #20 tabs azithromycin 250 mg tablet See Rx Instructions PO .COMPLEX #6 02/08/25 02/08/25 Rx (Zithromax) tabs Nurse's Note: Patient presents with a cough, headaches, and SOB for last 2 days. Patients says he was exposed to bacterial bronchitis from partner, who got it from work. His partner has had symptoms for last 5 days. 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 Symptoms began approximately two days ago, initially mild but have gradually worsened. Location: Symptoms are primarily respiratory, with the cough originating from the chest. Duration: Symptoms have been continuous for two days, with increased intensity in the evenings. Character/Quality: The cough is productive, accompanied by a sensation of tightness in the chest. Severity: Severity rated at 5/10, impacting sleep and daily activities. Modifying Factors: Symptoms slightly improve with rest . Associated Symptoms: Occasional headaches, sinus pressure, dry eyes, and mild fatigue, no fever or chills but has felt warm. Context: Recently exposed to bacterial bronchitis that his significant others workplace as well as her being infected.. Risk Factors: History of smoker Impact on Daily Life: Difficulty performing routine tasks and reduced exercise tolerance. . ROS Const Constitutional: Positive for headache(s); No body ache, chills, excessive sweating, fatigue, fever(s), frequent falls, snoring, weakness, weight change, sleep problems or change in appetite Eyes Eyes: No blurry vision, change in vision, eye pain or Light sensitivity ENT ENT: Positive for headache(s); No abnormal hearing, ear or mastoid pain, tinnitus, nasal congestion, neck pain or sore throat Resp Respiratory: Positive for cough; No shortness of breath, snoring or wheezing Cardio Cardiology: No chest pain at rest, chest pain with exertion, excessive sweating, shortness of breath, lightheadedness, orthopnea or palpitations Gastro GI: No abdominal pain, change in bowel habits, constipation, cramping, diarrhea, nausea/dyspepsia or vomiting Genitourinary Male: No burning urination, painful urination, urinary incontinence or urinary frequency Musc Musculoskeletal: No abnormal gait, joint pain, back pain, limited range of motion, neck pain, numbness or tingling Skin Skin: No dry skin, redness, lesions, itchy eyes, rash or wounds Neuro Neurology: Positive for headache(s); No abnormal gait, abnormal hearing, abnormal speech, dizziness, weakness, fr (more content not included)... Normal [facility] Orthopedic Visit Reporton Orthopedic Visit Report [facility] [address] [place] [id number] OFFICE VISIT Date of Service: 01/21/25 MR#: [id number] Acct: [id number] Name: RONNY DAY Rep #: [id number] : 1975 Provider: Dr. Harlan lópez MD Age/Sex: 49/M Location: [facility] [place] Status: Signed Intake Vital Signs 12/22/24 09:37 01/18/25 08:25 01/21/25 08:02 Height 5 ft 10 in 5 ft 10 in 5 ft 10 in Weight: 229 lb 2 oz 233 lb BMI 32.8 33.4 BP 124/78 H Blood Pressure Location Rt brachial Position Sitting Respiration 16 Pulse 62 Pulse Source Monitor Temp 97.9 F Temp Source Temporal Pulse Oximetry (%) 96 Oxygen Delivery Method room air Intake Visit Reasons: RIGHT KNEE Chief Complaint: Follow-up pt Accompanied by: Self Is patient in pain?: No Allergies Penicillins Allergy (Unknown, Verified 01/21/25 08:05) PT UNSURE OF REACTION Medications ???Medication ???Instructions ???Recorded ???Confirmed ???Type amlodipine 5 mg tablet 5 mg PO QDAY #90 tabs 10/19/24 Rx tadalafil 5 mg tablet (Cialis) 5 mg PO QDAY #90 tabs 10/19/24 Rx sildenafil 50 mg tablet 25 mg (1/2 x 50 mg) PO DAILY PRN 0 01/18/25 01/21/25 Rx sexual activity 1 month #20 tabs Have you fallen in the past year?: No PFSH Medical History (Updated 01/18/25 @ 12:[address] 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 Harlan Gaitan MD 01/21/25 0801. Part of today???s visit was documented by [ ], acting as scribe. RONNY DAY is a 49 year old M here today for follow-up bilateral knee pain, mild OA. Follow-up from a right knee intra-articular cortisone injection. Patient has been doing physical therapy. doing some standing and walking wih the MyEveTab. The pain is getting a lot better. Was not a fan of the injection but the physical therapy seems to be working well. No mechanical symptoms. Coding Level of Care Code Off vis,est,level 3 Diagnoses Bilateral primary osteoarthritis of knee M17.0 Assessment and Plan Assessment and Plan (1) Bilateral primary osteoarthritis of knee: Status: Acute Plan: RONNY DAY is a 49 year old M here today for follow-up bilateral knee pain, mild OA. Patient is happy to carry on nonsurgically and we discussed getting an MRI but he is not having any mechanical symptoms and the pain is a lot better with the physical therapy so we will continue to monitor and the patient will follow-up as needed. Clinical Quality Measures Falls Risk Screening/Assistive Devices Have you fallen in the past year?: No Ortho Exam General General: Yes no acute distress Neurologic: Yes alert and Yes oriented x3 Psychologic: Yes reasonable and appropriate Right Knee Skin/Wound: Yes CDI, No erythema, No ecchymosis and No swelling Knee ROM: Yes ROM-Flexion 0-140 Examination: No Med jt line tenderness, No Lat jt line tenderness, No TTP inf pole patella, Yes Crepitus, Yes Pain with flexion, No Kathy's Test, No TTP Patellar tendon, No TTP Tibial tubercle, No TTP Pes Anserine and No Illiotibial band tenderness Quad Atrophy: No Stability: NML: Anterior Drawer, NML: Nora, NML: Posterior Drawer, NML: Valgus 0, NML: Valgus 30, NML: Varus 0 and NML: Varus 30 Patella Translation: 2 Apprehension with Lateral Translation: No Patellar Tilt Normal: Yes Patella Grind: No KNEE: NVI, normal gait, normal alignment Left Knee Skin/Wound: Yes CDI, No ecchymosis, No erythema and No swelling Knee ROM: Yes ROM-Flexion 0-140 Examination: No med jt line tenderness, Yes Lat jt line tenderness, No TTP inf pole patella, Yes Crepitus, No Pain with flexion, No Kathy's Test, No TTP Patellar tendon, No TTP Tibial tubercle, No TTP Pes Anserine and No Illiotibial b (more content not included)... Normal [facility] Absolute lymphocyte countOrd ered By: Silvestre Stanley on 01-18-2025 Lymphocytes Auto (Unsp spec) [#/Vol] 1.91 10*3/uL 0.83-4.51 [facility] Absolute neutrophil countOrd ered By: Rebaguymonanat Stanley on 01-18-2025 Neutrophils (Bld) [#/Vol] 3.9 10*3/uL 2.0-7.7 [facility] Anion gap in Serum or Plasma Ordered By: Silvestre Stanley on 01-18-2025 Anion gap [Moles/Vol] 12 mmol/L 5-15 [facility] Automated lymphocyte count a s percentage of total leukocytesOrdered By: Silvestre Stanley on 01-18-2025 Lymphocytes/100 WBC Auto (Unsp spec) 28.8 % 19- [facility] BUN/creatinine ratioOrdered By: Rebaguymonanat Stanley on 01-18-2025 Urea nitrogen/Creatinine [Mass ratio] 20.5 mg/mg High 10-20 [facility] Basophil percentageOrdered B y: Silvestre Stanley on 01-18-2025 Basophils/100 WBC (Bld) 0.9 % 0-1 [facility] Bilirubin, totalOrdered By: Silvestre Stanley on 01-18-2025 Bilirubin [Mass/Vol] 0.57 mg/dL 0.00-1.30 [facility] CBC W/Diff, Automatedon 12-30 Absolute Lymph 1.91 X10 3/uL Normal 0.83-4.51 [facility] Comment on above: Performed By: #### L 500.4100, L100.0100, L500.4050 ####[facility] [address] [place], [address] Absolute Neut 3.9 X10 3/uL Normal 2.0-7.7 [facility] Comment on above: Performed By: #### L 500.4100, L100.0100, L500.4050 ####[facility] [address] [place], [address] Basophils/100 WBC (Bld) 0.9 % Normal 0-1 [facility] Comment on above: Performed By: #### L 500.4100, L100.0100, L500.4050 ####[facility] [address] [place], [address] Eosinophils/100 WBC (Bld) 2.9 % Normal 0-5 [facility] Comment on above: Performed By: #### L 500.4100, L100.0100, L500.4050 ####[facility] [address] [place], [address] Erythrocyte distribution width (RBC) [Ratio] 11.7 % Normal 11.6-14.6 [facility] Comment on above: Performed By: #### L 500.4100, L100.0100, L500.4050 ####[facility] [address] [place], [address] Hematocrit (Bld) [Volume fraction] 42.4 % Normal 40-54 [facility] Comment on above: Performed By: #### L 500.4100, L100.0100, L500.4050 ####[facility] [address] [place], [address] Hemoglobin (Bld) [Mass/Vol] 14.4 g/dL Normal 13.0-16.5 [facility] Comment on above: Performed By: #### L 500.4100, L100.0100, L500.4050 ####[facility] [address] [place], [address] IG% 0.200 Normal 0.0-0.9 [facility] Comment on above: Result Comment: IG% - Immature Granulocytes (promyelocytes, myelocytes and metamyelocytes) > 1% indicates that a LEFT SHIFT is Present. Performed By: #### L 500.4100, L100.0100, L500.4050 ####[facility] [address] [place], [address] Lymphocytes/100 WBC (Bld) 28.8 % Normal 19-41 [facility] Comment on above: Performed By: #### L 500.4100, L100.0100, L500.4050 ####[facility] [address] [place], [address] MCH (RBC) [Entitic mass] 32.9 pg High 27.0-32.0 [facility] Comment on above: Performed By: #### L 500.4100, L100.0100, L500.4050 ####[facility] [address] [place], [address] MCHC (RBC) [Mass/Vol] 34.0 g/dL Normal 32-36 [facility] Comment on above: Performed By: #### L 500.4100, L100.0100, L500.4050 ####[facility] [address] [place], [address] MCV (RBC) [Entitic vol] 96.8 fL High 80-94 [facility] Comment on above: Performed By: #### L 500.4100, L100.0100, L500.4050 ####[facility] [address] [place], [address] Monocytes/100 WBC (Bld) 9.2 % Normal 0-10 [facility] Comment on above: Performed By: #### L 500.4100, L100.0100, L500.4050 ####[facility] [address] [place], [address] Neutrophils/100 WBC (Bld) 58.0 % Normal 47-70 [facility] Comment on above: Performed By: #### L 500.4100, L100.0100, L500.4050 ####[facility] [address] [place], [address] Nucleated RBC (Bld) [#/Vol] 0 10*3/uL Normal 0-5 [facility] Comment on above: Performed By: #### L 500.4100, L100.0100, L500.4050 ####[facility] [address] [place], [address] Platelet mean volume (Bld) [Entitic vol] 9.9 fL Normal 6.2-12.0 [facility] Comment on above: Performed By: #### L 500.4100, L100.0100, L500.4050 ####[facility] [address] [place], [address] Platelets (Bld) [#/Vol] 198 10*3/uL Normal 150-450 [facility] Comment on above: Performed By: #### L 500.4100, L100.0100, L500.4050 ####[facility] [address] [place], [address] RBC (Bld) [#/Vol] 4.38 10*6/uL Low 4.6-6.2 [facility] Comment on above: Performed By: #### L 500.4100, L100.0100, L500.4050 ####[facility] [address] [place], [address] RDW SD 41.5 fl Normal 35.1-43.9 [facility] Comment on above: Performed By: #### L 500.4100, L100.0100, L500.4050 ####[facility] [address] [place], [address] WBC (Bld) [#/Vol] 6.6 10*3/uL Normal 4.4-11.0 [facility] Comment on above: Performed By: #### L 500.4100, L100.0100, L500.4050 ####[facility] [address] [place], [address] Calculated very low density lipoprotein (VLDL) cholesterol measurementOrdered By: Silvestre Stanley on 01-18-2025 Calculated very low density lipoprotein (VLDL) cholesterol measurement 18 mg/dL 5-40 [facility] Carbon dioxide, total [Moles /volume] in Central venous bloodOrdered By: Silvestre Stanley on 01-18-2025 CO2 [Moles/Vol] 22.8 mmol/L 21.0-32.0 [facility] Chloride assayOrdered By: Bismark Stanley on 01-18-2025 Chloride [Moles/Vol] 103 mmol/L 98-108 [facility] Comprehensive Metabolic Prof ilon 01-18-2025 Albumin [Mass/Vol] 4.5 g/dL Normal 3.5-5.0 [facility] Comment on above: Performed By: #### L 500.4100, L100.0100, L500.4050 ####[facility] [address] [place], [address] Albumin/Globulin [Mass ratio] 1.7 {ratio} Normal 0.9-2.4 [facility] Comment on above: Performed By: #### L 500.4100, L100.0100, L500.4050 ####[facility] [address] [place], [address] ALK PHOS 42 U/L Normal 40-129 [facility] Comment on above: Performed By: #### L 500.4100, L100.0100, L500.4050 ####[facility] [address] [place], [address] ALT [Catalytic activity/Vol] 32 U/L Normal <=46 [facility] Comment on above: Performed By: #### L 500.4100, L100.0100, L500.4050 ####[facility] [address] [place], [address] AST [Catalytic activity/Vol] 33 U/L Normal <=37 [facility] Comment on above: Performed By: #### L 500.4100, L100.0100, L500.4050 ####[facility] [address] [place], [address] Bilirubin [Mass/Vol] 0.57 mg/dL Normal 0.00-1.30 [facility] Comment on above: Performed By: #### L 500.4100, L100.0100, L500.4050 ####[facility] [address] [place], [address] BUN/CRE 20.5 RATIO High 10-20 [facility] Comment on above: Performed By: #### L 500.4100, L100.0100, L500.4050 ####[facility] [address] [place], [address] Calcium [Mass/Vol] 9.7 mg/dL Normal 7.6-11.0 [facility] Comment on above: Performed By: #### L 500.4100, L100.0100, L500.4050 ####[facility] [address] [place], [address] Chloride [Moles/Vol] 103 mmol/L Normal 98-108 [facility] Comment on above: Performed By: #### L 500.4100, L100.0100, L500.4050 ####[facility] [address] [place], [address] CO2 [Moles/Vol] 22.8 mmol/L Normal 21.0-32.0 [facility] Comment on above: Performed By: #### L 500.4100, L100.0100, L500.4050 ####[facility] [address] [place], [address] Creatinine [Mass/Vol] 1.15 mg/dL Normal 0.70-1.20 [facility] Comment on above: Performed By: #### L 500.4100, L100.0100, L500.4050 ####[facility] [address] [place], [address] GAP 12 Normal 5-15 [facility] Comment on above: Performed By: #### L 500.4100, L100.0100, L500.4050 ####[facility] [address] [place], [address] GFR/1.73 sq M.predicted among non-blacks MDRD (S/P/Bld) [Vol rate/Area] 77 mL/min/{1.73_m2} Normal >60 [facility] Comment on above: Result Comment: mL/m in/1.73m2 CKD-EPI Creatinine Equation (2020) Performed By: #### L 500.4100, L100.0100, L500.4050 ####[facility] [address] [place], [address] Globulin (S) [Mass/Vol] 2.7 g/dL Normal 2.2-4.2 [facility] Comment on above: Performed By: #### L 500.4100, L100.0100, L500.4050 ####[facility] [address] [place], [address] Glucose [Mass/Vol] 90 mg/dL Normal 70-99 [facility] Comment on above: Performed By: #### L 500.4100, L100.0100, L500.4050 ####[facility] [address] [place], [address] Potassium [Moles/Vol] 4.3 mmol/L Normal 3.3-5.1 [facility] Comment on above: Performed By: #### L 500.4100, L100.0100, L500.4050 ####[facility] [address] [place], [address] Sodium [Moles/Vol] 138 mmol/L Normal 133-145 [facility] Comment on above: Performed By: #### L 500.4100, L100.0100, L500.4050 ####[facility] [address] [place], [address] T PROT 7.2 g/dL Normal 5.9-8.4 [facility] Comment on above: Performed By: #### L 500.4100, L100.0100, L500.4050 ####[facility] [address] [place], [address] Urea nitrogen [Mass/Vol] 24 mg/dL High 4-19 [facility] Comment on above: Performed By: #### L 500.4100, L100.0100, L500.4050 ####[facility] [address] [place], [address] Eosinophil percentageOrdered By: Silvestre Stanley on 01-18-2025 Eosinophils/100 WBC (Bld) 2.9 % 0-5 [facility] Erythrocyte distribution wid th ratioOrdered By: Silvestre Stanley on 01-18-2025 Erythrocyte distribution width (RBC) [Ratio] 11.7 % 11.6-14.6 [facility] Erythrocyte distribution wid th standard deviationOrdered By: Silvestre Stanley on 01-18-2025 Erythrocyte distribution width (RBC) [Ratio] 41.5 fl 35.1-43.9 [facility] Glomerular filtration rate ( GFR) estimation/1.73 sq m using serum, plasma, or whole bOrdered By: Silvestre Stanley on 01-18-2025 GFR/1.73 sq M.predicted among non-blacks MDRD (S/P/Bld) [Vol rate/Area] 77 mL/min/{1.73_m2} >60 [facility] Comment on above: mL/min/1.73m2 CKD-EP I Creatinine Equation (2020) Hematocrit Auto (Bld) [Volum e fraction]Ordered By: Silvestre Stanley on 01-18-2025 Hematocrit (Bld) [Volume fraction] 42.4 % 40-54 [facility] Hemoglobin measurementOrdere d By: Silvestre Stanley on 01-18-2025 Hemoglobin (Bld) [Mass/Vol] 14.4 g/dL 13.0-16.5 [facility] Immature granulocytes/100 WB C Auto (Bld)Ordered By: Silvestre Stanley on 01-18-2025 Immature granulocytes/100 WBC (Bld) 0.200 % 0.0-0.9 [facility] Comment on above: IG% - Immature Granu locytes (promyelocytes, myelocytes and metamyelocytes) > 1% indicates that a LEFT SHIFT is Present. Internal Medicine Office Vis jud 01-18-2025 Internal Medicine Office Visit [facility] [address] [place] [address] [place] [address] OFFICE VISIT Date of Service: 01/18/25 MR#: [id number] Acct: [id number] Name: RONNY DAY Rep #: [id number] : 1975 Provider: Dr. Silvestre rose MD Age/Sex: 49/M Location: [facility] [place] Status: Signed Intake Vital Signs 10/19/24 08:20 12/22/24 09:37 01/18/25 08:25 Height 5 ft 10 in 5 ft 10 in 5 ft 10 in Weight: 229 lb 2 oz BMI 32.8 BP 124/78 H Blood Pressure Location Rt brachial Position Sitting Respiration 16 Pulse 62 Pulse Source Monitor Temp 97.9 F Temp Source Temporal Pulse Oximetry (%) 96 Oxygen Delivery Method room air Intake Visit Reasons: 3 m fu Chief Complaint: Follow-up chronic conditions Visitor Services Coordinator Required: No Accompanied by: Self Is patient in pain?: No Allergies Penicillins Allergy (Unknown, Verified 01/18/25 08:20) PT UNSURE OF REACTION Medications ???Medication ???Instructions ???Recorded ???Confirmed ???Type amlodipine 5 mg tablet 5 mg PO QDAY #90 tabs 10/19/24 Rx tadalafil 5 mg tablet (Cialis) 5 mg PO QDAY #90 tabs 10/19/24 Rx sildenafil 50 mg tablet 25 mg (1/2 x 50 mg) PO DAILY PRN 0 01/18/25 01/18/25 Rx sexual activity 1 month #20 tabs Nurse's Note: right knee injection and P.T. doing better [facility] Medical History (Updated 01/18/25 @ 12:[address] 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 The patient reports experiencing knee pain, particularly in the right knee, which was exacerbated by activity. X-rays revealed mild osteoarthritis, and a cortisone injection was administered, providing temporary relief. The patient underwent a month of physical therapy, which helped alleviate the pain, although symptoms occasionally recur. The patient also reports issues with erectile dysfunction, for which he occasionally takes sildenafil. He has noticed that the medication sometimes affects his ability to climax, and he is considering adjusting the dosage. The patient has a history of hypertension, currently managed with amlodipine, and his blood pressure is well-controlled at 124/78 mmHg. He inquired about the necessity of continuing his antihypertensive medication, given his current blood pressure readings. Additionally, the patient has scaly lesions on his ears, for which he sees a customer development manager annually. Biopsies and cryotherapy have been performed in the past, and he plans to continue regular dermatological evaluations. Attestation: Documentation on this patient encounter was supported using ambient scribe technology/ voice AI technology. The patient consented to recording for the purpose of documenting the encounter. Provider reviewed content of the generated note prior to signature. ROS Const Constitutional: No body ache, excessive sweating, fatigue, fever(s), frequent falls, headache(s), snoring, weakness, weight change, sleep problems or change in appetite Eyes Eyes: No blurry vision, change in vision, vision loss, dry eyes, eye pain or Light sensitivity ENT ENT: No abnormal hearing, ear or mastoid pain, tinnitus, dizziness/vertigo, nasal congestion, headache(s), neck pain or sore throat Resp Respiratory: No cough, excessive phlegm production, hemoptysis, shortness of breath, snoring or wheezing Cardio Cardiology: No chest pain at rest, chest pain with exertion, excessive sweating, shortness of breath, dyspnea on exertion, lightheadedness, orthopnea or palpitations Gastro GI: No abdominal pain, change in bowel habits, constipation, cramping, diarrhea, nausea/dyspepsia or vomiting Genitourinary Male: No burning urination, painful urination, urinary i (more content not included)... Normal [facility] LDL calc ser/plasOrdered By: Silvestre Stanley on 01-18-2025 Cholesterol in LDL [Mass/Vol] 129 mg/dL [facility] Comment on above: Qkifjpvdrm=506-672 m g/dL & Higher Jgth=614 mg/dL or greater Laboratory - Chemistry and C hemistry - challengeOrdered By: Silvestre Stanley on 01-18-2025 AST [Catalytic activity/Vol] 33 U/L <38 [facility] Lipid Profileon 01-18-2025 CHOL:HDL 3.17 Normal [facility] Comment on above: Performed By: #### L 500.4100, L100.0100, L500.4050 ####[facility] [address] [place], [address] Cholesterol [Mass/Vol] 215 mg/dL High <=200 [facility] Comment on above: Result Comment: Chol esterol level, Desirable <200 mg/dL Borderline high cholesterol 200-239 mg/dL High cholesterol >=240 mg/dL Recommendations of the NCEP Adult Treatment Panel for the following risk-cutoff thresholds for the [place] population. Performed By: #### L 500.4100, L100.0100, L500.4050 ####[facility] [address] [place], [address] Cholesterol in HDL [Mass/Vol] 68 mg/dL Normal [facility] Comment on above: Result Comment: Meghana onal Cholesterol Education Program (NCEP) guidelines: <40 mg/dL: Low HDL-cholesterol (major risk factor for CHD) >= 60 mg/dL: High HDL-cholesterol (negative risk factor for CHD) HDL-cholesterol is affected by a number of factors, e.g. smoking, exercise, hormones, sex and age. Performed By: #### L 500.4100, L100.0100, L500.4050 ####[facility] [address] [place], [address] Cholesterol in LDL [Mass/Vol] 129 mg/dL Normal [facility] Comment on above: Result Comment: Bord fmsnep=289-345 mg/dL Higher Jtxw=741 mg/dL or greater Performed By: #### L 500.4100, L100.0100, L500.4050 ####[facility] [address] [place], [address] Cholesterol in VLDL [Mass/Vol] 18 mg/dL Normal 5-40 [facility] Comment on above: Performed By: #### L 500.4100, L100.0100, L500.4050 ####[facility] [address] [place], [address] Triglyceride [Mass/Vol] 91 mg/dL Normal [facility] Comment on above: Result Comment: The drugs N-Acetylcysteine and Metamizole may falsely depress this assay. Normal range: <150 mg/dL Borderline High: 150-199 mg/dL High: 200-499 mg/dL Very High: >500 mg/dL Performed By: #### L 500.4100, L100.0100, L500.4050 ####[facility] [address] [place], [place], [address] MCV (mean corpuscular volume ) determinationOrdered By: Silvestre Stanley on 01-18-2025 MCV (RBC) [Entitic vol] 96.8 fL High 80-94 [facility] Mean corpuscular hemoglobin (MCH) determinationOrdered By: Silvestre Stanley on 01-18-2025 MCH (RBC) [Entitic mass] 32.9 pg High 27.0-32.0 [facility] Mean corpuscular hemoglobin concentration (MCHC) determinationOrdered By: Silvestre Stanley on 01-18-2025 MCHC (RBC) [Mass/Vol] 34.0 g/dL 32-36 [facility] Mean platelet volume determi nationOrdered By: Silvestre Stanley on 01-18-2025 Platelet mean volume (Bld) [Entitic vol] 9.9 fL 6.2-12.0 [facility] Monocyte percentageOrdered B y: Efpetrosonganat Patele on 01-18-2025 Monocytes/100 WBC (Bld) 9.2 % 0-10 [facility] Neutrophil percentageOrdered By: Efdionicio Patele on 01-18-2025 Neutrophils/100 WBC (Bld) 58.0 % 47-70 [facility] Nucleated red blood cell per centageOrdered By: Silvestre Patele on 01-18-2025 Nucleated RBC/100 WBC (Bld) [Ratio] 0 % 0-5 [facility] Platelet countOrdered By: Ef dionicio Stanley on 01-18-2025 Platelets (Bld) [#/Vol] 198 10*3/uL 150-450 [facility] Potassium measurement (mass/ volume)Ordered By: Silvestre Stanley on 01-18-2025 Potassium (Unsp spec) [Mass/Vol] 4.3 mmol/L 3.3-5.1 [facility] RBC Auto (Bld) [#/Vol]Ordere d By: Silvestre Stanley on 01-18-2025 RBC (Bld) [#/Vol] 4.38 10*6/uL Low 4.6-6.2 [facility] Screening total cholesterol/ high density lipoprotein (HDL) cholesterol ratioOrdered By: Silvestre Stanley on 01-18-2025 Cholesterol.total/Choles terol in HDL [Mass ratio] 3.17 {ratio} [facility] Serum creatinine measurement (mass/volume)Ordered By: Silvestre Stanley on 01-18-2025 Creatinine [Mass/Vol] 1.15 mg/dL 0.70-1.20 [facility] Serum globulin measurementOr dered By: Silvestre Stanley on 01-18-2025 Globulin (S) [Mass/Vol] 2.7 g/dL 2.2-4.2 [facility] Serum glucose measurement (m ass/volume)Ordered By: Silvestre Stanley on 01-18-2025 Glucose [Mass/Vol] 90 mg/dL 70-99 [facility] Serum or plasma alanine chao otransferase (ALT) measurementOrdered By: Silvestre Stanley on 01-18-2025 ALT [Catalytic activity/Vol] 32 U/L <47 [facility] Serum or plasma albumin antonio urement (mass/volume)Ordered By: Silvestre Stanley on 01-18-2025 Albumin [Mass/Vol] 4.5 g/dL 3.5-5.0 [facility] Serum or plasma albumin/glob ulin mass ratioOrdered By: Silvestre Stanley on 01-18-2025 Albumin/Globulin [Mass ratio] 1.7 {ratio} 0.9-2.4 [facility] Serum or plasma alkaline jose sphatase measurementOrdered By: Silvestre Stanley on 01-18-2025 ALP [Catalytic activity/Vol] 42 U/L 40-129 [facility] Serum or plasma calcium antonio urement (mass/volume)Ordered By: Silvestre Nabilbrian on 01-18-2025 Calcium [Mass/Vol] 9.7 mg/dL 7.6-11.0 [facility] Serum or plasma cholesterol in HDL measurement (mass/volume)Ordered By: Bismarkpetroshermannanat Ferrerbrian on 01-18-2025 Cholesterol in HDL [Mass/Vol] 68 mg/dL >40 [facility] Comment on above: National Cholesterol Education Program (NCEP) guidelines:<40 mg/dL: Low HDL-cholesterol (major risk factor for CHD)>= 60 mg/dL: High HDL-cholesterol (negative risk factor for CHD)HDL-cholesterol is affected by a number of factors, e.g. smoking, exercise, hormones, sex and age. Serum or plasma cholesterol measurement (mass/volume)Ordered By: Bismarkpetroshermannanat Ferrerleilex on 01-18-2025 Cholesterol [Mass/Vol] 215 mg/dL High <201 [facility] Comment on above: Cholesterol level, D esirable <200 mg/dLBorderline high cholesterol 200-239 mg/dLHigh cholesterol >=240 mg/dLRecommendations of the NCEP Adult Treatment Panel for the following risk-cutoff thresholds for the [place] population. Serum or plasma urea nitroge n measurement (mass/volume)Ordered By: Bismarkpetroshermannanat Ferrerleilex on 01-18-2025 Urea nitrogen [Mass/Vol] 24 mg/dL High 4-19 [facility] Sodium levelOrdered By: Reba hai Lizeth on 01-18-2025 Sodium [Moles/Vol] 138 mmol/L 133-145 [facility] Total proteinOrdered By: Guicho aguilar Nabilleilex on 01-18-2025 Protein [Mass/Vol] 7.2 g/dL 5.9-8.4 [facility] Triglycerides measurementOrd ered By: Bismarkpetroshermannanat Ferrerleilex on 01-18-2025 Triglyceride [Mass/Vol] 91 mg/dL <199 [facility] Comment on above: The drugs N-Acetylcy steine and Metamizole may falsely depress this assay. Normal range: <150 mg/dLBorderline High: 150-199 mg/dLHigh: 200-499 mg/dLVery High: >500 mg/dL White blood cell (WBC) count Ordered By: Silvestre Stanley on 01-18-2025 WBC (Bld) [#/Vol] 6.6 10*3/uL 4.4-11.0 [facility] PT D/C Summary (1)on 025 PT D/C Summary (1) [facility] Physical Therapy [facility] [address] [place] [address] / REHABILITATION SERVICES DISCHARGE SUMMARY MR#: [id number] Acct: [id number] Name: RONNY DAY Rep #: [id number] : 1975 49 From: Eunice Collins DPT Referring Dr.: Dr. Harlan Gaitan MD Status: R EG RCR Insurance: [facility] SELF PAY INSURANCE Discharge Summary D/C summary: It has been my pleasure to treat RONNY DAY referred by Dr. Harlan Gaitan MD, with the diagnosis of Right Knee Pain for a total of 8 visit(s). Discharge Date: Please see the following information for a summary of their discharge status. Subjective Subjective: Patient reports that his knee is doing okay- he has muscle soreness in his thighs from Saturday. He generally does not have knee pain anymore it was a little achy last night. Overall Improvement % Improvement: 50 Objective Objective/Function: Posture: forward head, rounded shoulders Gait: no deviation noted SLS: 15 seconds HR/TR: able Stairs: asc/desc no HR ROM: 0-120 degrees Strength: Ankle: 5/5, Knee: Left: Flexion: 58 Extn: 82 Right: Flexion: 60 Extn: 88 with pain Hip: 4+/5 throughout, Core: fair Flex: HS: moderate, Gastroc: moderate Goals Goal 1:: Patient will be I with HEP and progression Goal Progress: Goal Met Goal 2:: Patient will SLS for 30 sec without LOB Goal Progress: Goal Met Goal 3:: Patient will asc/desc 8 stairs recip without HR and pain Goal Progress: Goal Met Goal 4:: Patient will report 80% improvement Goal Progress: Progressing Plan Plan: Discharge to [facility] D/C Information d/c sentence: If there are questions or concerns regarding this patient's physical therapy, please feel free to call me at [phone]. Thank you for the referral of this patient. Sincerely, Eunice Collins DPT Balance/Gait/Functio nal tests Balance/Special Test Scores Lower Extremity Functional Score: 61 Improvement % Improvement: 50 01/14/25 0730 CC: Dr. Silvestre Stanley MD; Dr. Harlan Gaitan MD ELR Signed [facility] Inital Evaluation (1) - PTon 12-22-2024 Inital Evaluation (1) - PT [facility] Physical Therapy [facility] [address] [place] [id number] / REHABILITATION SERVICES INITIAL EVALUATION MR#: [id number] Acct: [id number] Name: RONNY DAY Rep #: [id number] : 1975 49 From: Eunice Collins DPT Referring Dr.: Dr. Harlan Gaitan MD Status: R EG RCR Insurance: [facility] SELF PAY INSURANCE Patient's Visit Information Visit Information Visit Information: RONNY DAY is a 49 year old M referred to Physical Therapy by Dr. Harlan Gaitan MD with a diagnosis of Right Knee Pain. Date of Evaluation: 12/22/24 Physical Therapist: Eunice Collins DPT Visit Plan Frequency: 2x /Week Duration: 4 Weeks Plan: Focus on LE and core strength/stabilizati on Subjective Subjective: Patient reports that he has right knee pain- he has had knee pain for 2 weeks- insidious onset. The pain is located in the whole knee- he sat with ice on it and it was okay the next day. Ended up in the river on uneven surfaces- it was pretty sore. Worst: 7/10 Agg: uneven surfaces, everything. Eases: ice. Best: 0/10. The pain is mostly on the inside and the whole thing feels tight after the injection. Dr. Gaitan gave him an injection today and took x-rays. When he goes a march it feels like the leg will fall off and its coming apart. No N/T in the foot. Describes the pain in the knee as dull and achy but does get a sharp pain. Feels like the knee was better but he still has the appointment- has multiple nurses in his family and they wanted him to get checked out. X-rays which showed mild OA. 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 Sleep: not disturbed. No radiating pain into his hip or back. PMHx/Meds: no change since saw ortho. Objective Objective: Posture: forward head, rounded shoulders Gait: slightly antalgic- decreased stance on right LE with poor heel/toe due to lack of extension in right knee SLS: 5 sec then LOB increased sway with reports of discomfort HR/TR: able with tightness and discomfort Stairs: asc/desc single HR- reports discomfort- poor control with descent ROM: lacking 5 degrees of extension, Flexion to 120 degrees with pain at end range Strength: Ankle: 5/5, Knee: Left: Flexion: 58 Extn: 99 Right: Flexion: 23 Extn: 52 with pain Hip: 4/5 throughout, Core: fair Flex: HS: moderate, Gastroc: moderate Testing may be skewed due to injection approx 3 hours ago Balance/Special Test Scores Lower Extremity Functional Score: 23 Goals Goal 1:: Patient will be I with HEP and progression Goal Time Frame: 4-6 Weeks Goal 2:: Patient will SLS for 30 sec without LOB Goal Time Frame: 4-6 Weeks Goal 3:: Patient will asc/desc 8 stairs recip without HR and pain Goal Time Frame: 4-6 Weeks Goal 4:: Patient will report 80% improvement Goal Time Frame: 4-6 Weeks Rehabilitation Potential Physical Therapy Diagnosis: Patient presents with decreased LE and core strength/stabilizati on, flex and muscular endurance leading to abnormal gait and increased pain Rehabilitation Potential: Good Anticipated Interventions Patient/Client Instruction: Educate patient on: Benefits of Fitness Program Therapeutic Exercise to Include: Strength training, Endurance training, Balance training, Coordination, Agility training, Body mechanics, Postural training, Flexibilty training, Gait and locomotor training, Neuromotor development, Dynamic Lumbar Stabilization and Scapular Strength/Stabilizati on For the Purpose of:: To improve muscle performance and motor function TENS: Yes Cryotherapy (ice pack, ice massage): Yes Thermo therapy (hot pack): Yes Ultrasound (thermal/non thermal): Yes Text: Thank you for the opportunity to evaluate your patient. For Medicare and Medicare HMO plans, please review the plan of care and approve it. It will need to be FAXED BACK to us at [phone] for Medicare purposes. For Medicare only, by signing this I certify the plan of care. Please let me know if there are questions or concerns regarding this plan of care. Physician Signature: D ate: 12/22/24 1457 CC: Dr. Silvestre Stanley MD; Dr. Michael Reyes MD; Dr. Harlan Gaitan MD ELR Signed [facility] Knee 4 or More Viewson 12-22 Knee 4 or More Views [facility] Imaging Services [address], [place] [address] Knee 4 or More Views MR#: [id number] Acct: [id number] Name: RONNY DAY Rep #: [id number] : 1975 M 49 From: Fuad Peña PCP: Dr. Silvestre Stanley MD Status: DEP AMB Study: Knee 4 or More Views Date of Exam: 12/22/24 Exam# [id number] Ordering Dr: Harlan Gaitan MD PROCEDURE: KNEE 4 OR MORE VIEWS 12/22/2024 REASON FOR EXAM: CHRONIC PAIN TECHNIQUE: Four view right knee series and four view left knee series (combined dictation). COMPARISON: None. RAD/Knee 4 or More Views IMPRESSION: On the right, mild tricompartmental degenerative changes are seen, without significant joint narrowing, and most prominent in the medial and especially patellofemoral compartments. No right knee joint effusion is noted. A prominent chronic appearing enthesophyte at the superior patella is also noted. No fracture or dislocation is seen On the left, at least mild tricompartmental degenerative changes are seen, with at least mild left knee medial joint narrowing noted. No left knee joint effusion is seen. A superior patellar chronic appearing enthesophyte is also noted. No fracture or dislocation is evident. Reading Location: [place] [address] CC: Dr. Silvestre Stanley MD; Dr. Harlan Gaitan MD Feeder Tender: Signed Normal [facility] Knee 4 or More Views [facility] Imaging Services [address] [place] [address] Knee 4 or More Views MR#: [id number] Acct: [id number] Name: RONNY DAY Rep #: [id number] : 1975 M 49 From: Fuad Peña PCP: Dr. Silvestre Stanley MD Status: DEP AMB Study: Knee 4 or More Views Date of Exam: 12/22/24 Exam# [id number] Ordering Dr: Harlan Gaitan MD PROCEDURE: KNEE 4 OR MORE VIEWS 12/22/2024 REASON FOR EXAM: CHRONIC PAIN TECHNIQUE: Four view right knee series and four view left knee series (combined dictation). COMPARISON: None. RAD/Knee 4 or More Views IMPRESSION: On the right, mild tricompartmental degenerative changes are seen, without significant joint narrowing, and most prominent in the medial and especially patellofemoral compartments. No right knee joint effusion is noted. A prominent chronic appearing enthesophyte at the superior patella is also noted. No fracture or dislocation is seen On the left, at least mild tricompartmental degenerative changes are seen, with at least mild left knee medial joint narrowing noted. No left knee joint effusion is seen. A superior patellar chronic appearing enthesophyte is also noted. No fracture or dislocation is evident. Reading Location: [facility] CC: Dr. Silvestre Stanley MD; Dr. Harlan Gaitan MD Feeder Tender: Signed Normal [facility] Orthopedic Visit Reporton Orthopedic Visit Report [facility] [place] [address] OFFICE VISIT Date of Service: 12/22/24 MR#: [id number] Acct: [id number] Name: RONNY DAY Rep #: [id number] : 1975 Provider: Dr. Harlan lópez MD Age/Sex: 49/M Location: [facility] [place] Status: Signed with Addenda ADDENDUM by ZONIA Bell on 12/22/24 at 1019 Office Procedure Documentation entered by Pearl Bell MA 12/22/24 10:19: Ortho Injections Injections Yes Knee Right Is this a patient provided medication?: No Details: Obtained consent for injection. Under sterile conditions, injected the patients right knee with 2cc Kenalog, and 4cc Bupivacaine. The patient tolerated the injection well without any noted complication. Patient should call our office if redness develops, pain worsens or if they have any concerns. Office Meds Kenalog 40 mg/mL suspension for injection Performing Provider: Harlan Gaitan MD Performing Location: [facility] Administered by: Harlan Gaitan MD on 12/22/24 10:18 Dose Route Admin Location Dispensed Lot Number Expiration Date NDC Man ufacturer 40 mg intra-articular Right knee 1 mL [id number] 01/29/27 4966-4418-32 [employer] P [employer] Date cc: * Signed Intake Vital Signs 10/19/24 08:20 12/22/24 09:37 Height 5 ft 10 in 5 ft 10 in Weight: 241 lb 232 lb 6 oz BMI 34.5 33.3 BP 124/78 H Blood Pressure Location Lt brachial Position Sitting Respiration 16 Pulse 66 Pulse Source Monitor Temp 97.3 F L Temp Source Temporal Pulse Oximetry (%) 95 Oxygen Delivery Method room air Intake Visit Reasons: RIGHT KNEE Chief Complaint: Right knee pain Accompanied by: Self Is patient in pain?: Yes Pain scale (1-10): 6 Allergies Penicillins Allergy (Unknown, Verified 12/22/24 09:41) PT UNSURE OF REACTION Medications ???Medication ???Instructions ???Recorded ???Confirmed ???Type amlodipine 5 mg tablet 5 mg PO QDAY #90 tabs 10/19/24 Rx tadalafil 5 mg tablet (Cialis) 5 mg PO QDAY #90 tabs 10/19/24 Rx sildenafil 50 mg tablet 75 mg (1.5 x 50 mg) PO DAILY PRN 0 12/11/24 12/22/24 Rx sexual activity 1 month #40 tabs Have you fallen in the past year?: No PFSH Medical History (Updated 12/22/24 @ 09:58 by Harlan Gaitan MD) Bilateral primary osteoarthritis of knee Left knee pain Right knee pain Anxiety Alcohol use Smoker History of stress test Bilateral shoulder pain Performance anxiety Erectile dysfunction Colon cancer screening Preventative health care Insomnia Anxiety and depression Sleep apnea Surgical History History of vasectomy History of hernia repair History of appendectomy Family History Grandfather Heart disease Myocardial infarction Uncle Cancer Social History current occupational status: employed 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 Harlan Gaitan MD 12/22/24 0823. Part of today???s visit was documented by [ ], acting as scribe. RONNY DAY is a 49 year old M here today for bilat knee pain. 20 yrs. worse over last 3 weeks. pops and catching. medial side pain. some swelling. worse with getting up out of a chair. and at the distal end of the quads. no surgery or treatment. been trying some stretching. 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 10 miles a day sometimes. Supplemental Info R knee xr 4 view --mild predominantly medial compartment osteoarthritic changes. There is a moderate size calcification at the distal quadriceps insertion. L knee xr 4 view -- mild predominantly medial compartment osteoarthritic changes. There is a small size calcification at the distal quadriceps insertion. Coding Level of Care Code Attention [place] Chief Diagnoses Right knee pain M25.561 Left knee pain M25.562 Bilateral primary osteoarthritis of knee M17.0 Comment 43997 and CPT inject major joint Assessment and Plan Assessment and Plan (1) Right knee pain: Status: Acute Plan: RONNY DAY is a 49 year old M here today for bilat knee pain. Patient has mild bilateral osteoarthritis. Could have meniscus tears or other intra-articular problems as well as pain from the ca (more content not included)... Normal [facility] Internal Medicine Office Vis iton 10-19-2024 Internal Medicine Office Visit [facility] [address] [place] [address] [place] [address] OFFICE VISIT Date of Service: 10/19/24 MR#: [id number] Acct: [id number] Name: RONNY DAY Rep #: [id number] : 1975 Provider: Dr. Silvestre rose MD Age/Sex: 49/M Location: [facility] [place] Status: Signed Intake Vital Signs 07/20/24 08:55 10/19/24 08:20 Height 5 ft 10 in 5 ft 10 in Weight: 241 lb BMI 34.5 BP 124/78 H Blood Pressure Location Lt brachial Position Sitting Respiration 16 Pulse 66 Pulse Source Monitor Temp 97.3 F L Temp Source Temporal Pulse Oximetry (%) 95 Oxygen Delivery Method room air Intake Visit Reasons: 3 M FU Chief Complaint: 4 M FU Visitor Services Coordinator Required: No Is patient in pain?: No Allergies Penicillins Allergy (Unknown, Verified 10/19/24 08:19) PT UNSURE OF REACTION Medications ???Medication ???Instructions ???Recorded ???Confirmed ???Type sildenafil 50 mg tablet 75 mg (1.5 x 50 mg) PO DAILY PRN 0 07/20/24 10/19/24 Rx sexual activity 1 month #40 tabs amlodipine 5 mg tablet 5 mg PO QDAY #90 tabs 10/19/24 Rx tadalafil 5 mg tablet (Cialis) 5 mg PO QDAY #90 tabs 10/19/24 Rx Nurse's Note: needs everything refilled. 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 No acute concerns at this time. History of hypertension, started on amlodipine, he states that he is taking medication consistently and his blood pressure today is at 124/78mmHg down from his last visit. No syncopal or near syncopal episodes. Also history of erectile dysfunction/performa nce anxiety. He is currently on tadalafil daily and sildenafil just as needed. He states that he is in a new relationship and now he believes that he did have performance anxiety. Doing well on current regimen. No new concerns reported. History of obesity, down from a BMI of 36-34. He states that he is in a new relationship, he has been drinking less and being more active. ROS Const Constitutional: No body ache, chills, excessive sweating, fatigue, fever(s), frequent falls, headache(s), snoring, weakness, sleep problems or change in appetite Eyes Eyes: No blurry vision, change in vision, bulging eyes, floaters, visual disturbances, eye pain or Light sensitivity ENT ENT: No abnormal hearing, ear or mastoid pain, tinnitus, balance problems, nosebleed/epistaxis, nasal congestion, headache(s), neck pain or sore throat Resp Respiratory: No cough, excessive phlegm production, pain on inspiration, shortness of breath, snoring or wheezing Cardio Cardiology: No chest pain at rest, chest pain with exertion, excessive sweating, shortness of breath, dyspnea on exertion, lightheadedness, orthopnea or palpitations Gastro GI: No abdominal pain, change in bowel habits, constipation, cramping, diarrhea, nausea/dyspepsia or vomiting Genitourinary Male: No burning urination, painful urination, urinary incontinence or urinary frequency Musc Musculoskeletal: No abnormal gait, joint pain, back pain, limited range of motion, neck pain or numbness Skin Skin: No dry skin, redness, excessive hair growth, yellowing of the eye, lesions, itchy eyes, rash or wounds Neuro Neurology: No abnormal gait, abnormal hearing, behavioral changes, unsteady gait/balance, weakness, frequent falls, headache(s), memory loss, numbness or visual disturbances Psych Psychiatric: No anxiety, No behavioral changes, No change in appetite, No depression, No memory loss and No Thoughts of harming yourself/Others Endo Endocrine: No cold intolerance, excessive sweating, fatigue, flushing, heat intolerance, increased thirst/drinking or increased hunger Aller/Imm Allergy/Immunologic: No itchy eyes, seasonal allergy symptoms, hives or (more content not included)... Normal [facility] Internal Medicine Office Vis iton 07-20-2024 Internal Medicine Office Visit [facility] [place] [address] [place] [address] OFFICE VISIT Date of Service: 07/20/24 MR#: [id number] Acct: [id number] Name: RONNY DAY Rep #: [id number] : 1975 Provider: Dr. Silvestre rose MD Age/Sex: 49/M Location: [facility] [place] Status: Signed Intake Vital Signs 05/15/24 09:33 06/08/24 10:20 07/20/24 08:55 Height 5 ft 10 in 5 ft 10 in 5 ft 10 in Weight: 254 lb 4 oz BMI 36.4 BP 142/80 H Blood Pressure Location Lt brachial Position Sitting Respiration 14 Pulse 74 Pulse Source Monitor Temp 96 F L Temp Source Temporal Pulse Oximetry (%) 95 Oxygen Delivery Method room air Intake Visit Reasons: 2 M FU Chief Complaint: 4 M FU Visitor Services Coordinator Required: No Accompanied by: Self Is patient in pain?: No Allergies Penicillins Allergy (Unknown, Verified 07/20/24 08:55) PT UNSURE OF REACTION Medications ???Medication ???Instructions ???Recorded ???Confirmed ???Type tadalafil 5 mg tablet (Cialis) 5 mg PO QDAY #30 tabs 07/17/24 07/20/24 Rx amlodipine 5 mg tablet 5 mg PO QDAY #30 tabs 07/20/24 07/20/24 Rx sildenafil 50 mg tablet 75 mg (1.5 x 50 mg) PO DAILY PRN 07/20/24 07/20/24 Rx sexual activity 1 month #40 tabs Have you fallen in the past year?: No PFSH Medical History Anxiety Alcohol use Smoker History of stress test Bilateral shoulder pain Performance anxiety Erectile dysfunction Colon cancer screening Preventative health care Insomnia Anxiety and depression Sleep apnea Surgical History History of vasectomy History of hernia repair History of appendectomy Family History Grandfather Heart disease Myocardial infarction Uncle Cancer Social History current occupational status: employed 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 No acute concerns at this time. History of erectile dysfunction, at his last visit in addition to sildenafil, he was started on Cialis daily. He states that this has helped. 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 He states that he takes Cialis daily, considering switching it to nighttime dose. He would like the dose of sildenafil increased. History of hypertension, had previously not been on medication however, his blood pressure today is at 142/80 mmHg. He has also gained a couple pounds. Positive family history of hypertension. No chest pain, palpitation or shortness of breath. ROS Const Constitutional: No body ache, excessive sweating, fatigue, fever(s), frequent falls, headache(s), snoring, weakness, weight change, sleep problems or change in appetite Eyes Eyes: No blurry vision, change in vision, discharge, floaters, visual disturbances, eye pain or Light sensitivity ENT ENT: No abnormal hearing, ear or mastoid pain, tinnitus, balance problems, nosebleed/epistaxis, nasal congestion, headache(s), neck pain or sore throat Resp Respiratory: No cough, excessive phlegm production, pain on inspiration, shortness of breath, snoring or wheezing Cardio Cardiology: No chest pain at rest, chest pain with exertion, excessive sweating, shortness of breath, dyspnea on exertion, lightheadedness, orthopnea or palpitations Gastro GI: No abdominal pain, change in bowel habits, constipation, cramping, diarrhea, nausea/dyspepsia or vomiting Genitourinary Male: No burning urination, painful urination, urinary incontinence, urinary frequency or blood in urine Musc Musculoskeletal: No abnormal gait, joint pain, back pain, limited range of motion, neck pain, numbness, stiffness, tingling or Arthritis Skin Skin: No dry skin, redness, excessive hair growth, yellowing of the eye, lesions, itchy eyes, rash or wounds Neuro Neurology: No abnormal gait, abnormal hearing, abnormal speech, behavioral changes, unsteady gait/balance, dizziness, weakness, frequent falls, headache(s), memory loss, numbness, tingling or visual disturbances Psych Psychiatric: No anxiety, No behavioral changes, No change in appetite, No depression, No memory loss and No Thoughts of harming yourself/Others Endo Endocrine: No cold intolerance, excessive sweating, fatigue, flushing, heat intolerance, increased thirst/drinking, increased hunger or weight change Aller/Imm Allergy/Immunologic: No itchy eyes, seasonal al (more content not included)... Normal [facility] Colonoscopy Reporton 024 Colonoscopy Report [facility] Medical Records Department [address] [place] [address] Colonoscopy Report MR#: [id number] Acct: [id number] Name: BARBRONNY CHIDI Rep #: [id number] : 1975 49 From: John Lawton DO PCP: Dr. Silvestre Stanley MD Status:REG [facility] Patient Name: Ronny Day Procedure Date: 06/08/2024 11:06 AM Date of : 1975 Age: 49 Procedure: Colonoscopy Indications: Screening for colorectal malignant neoplasm Providers: John Lawton DO Referring MD: Silvestre Stanley MD Medicines: Monitored Anesthesia Care Patient Profile: This is a 49 year old male. Refer to note in patient chart for documentation of history and physical. Last Colonoscopy: none. The patient's first colonoscopy is today. Complications: No immediate complications. Procedure: Pre-Anesthesia Assessment: - Prior to the procedure, a History and Physical was performed, and patient medications and allergies were reviewed. The patient is competent. The risks and benefits of the procedure and the sedation options and risks were discussed with the patient. All questions were answered and informed consent was obtained. Patient identification and proposed procedure were verified by the physician in the pre-procedure area. Mental Status Examination: alert and oriented. Airway Examination: normal oropharyngeal airway and neck mobility. Respiratory Examination: clear to auscultation. CV Examination: normal. Prophylactic Antibiotics: The patient does not require prophylactic antibiotics. Prior Anticoagulants: The patient has taken no anticoagulant or antiplatelet agents except for NSAID medication. ASA Grade Assessment: II - A patient with mild systemic disease. After reviewing the risks and benefits, the patient was deemed in satisfactory condition to undergo the procedure. The anesthesia plan was to use monitored anesthesia care (MAC). Immediately prior to administration of medications, the patient was re-assessed for adequacy to receive sedatives. The heart rate, respiratory rate, oxygen saturations, blood pressure, adequacy of pulmonary ventilation, and response to care were monitored throughout the procedure. The physical status of the patient was re-assessed after the procedure. After I obtained informed consent, the scope was passed under direct vision. Throughout the procedure, the patient's blood pressure, pulse, and oxygen saturations were monitored continuously. The Colonoscope was introduced through the anus and advanced to the cecum, identified by appendiceal orifice and ileocecal valve. The colonoscopy was performed without difficulty. The patient tolerated the procedure well. The quality of the bowel preparation was adequate. Scope In: 11:22:58 AM Scope Withdrawal Time 0 hours 23 minutes 5 seconds Scope Out: 11:49:11 AM Total Procedure Duration Time 0 hours 26 minutes 13 seconds Findings: The perianal and digital rectal examinations were normal. A few small and large-mouthed diverticula were found in the recto-sigmoid colon and sigmoid colon. Biopsies were taken with a cold forceps for histology. Verification of patient identification for the specimen was done. Estimated blood loss was minimal. Three sessile polyps were found in the rectum and sigmoid colon. The polyps were 1 to 2 mm in size. These polyps were removed with a jumbo cold forceps. Resection and retrieval were complete. Verification of patient identification for the specimen was done. Estimated blood loss was minimal. Two sessile polyps were found in the sigmoid colon and ascending colon. The polyps were 1 to 2 mm in size. These polyps were removed with a hot snare. Resection and retrieval were complete. Verification of patient identification for the specimen was done. Estimated blood loss was minimal. For location marking, one hemostatic clip was successfully placed. Clip inseamer: [employer]. There was no bleeding at the end of the procedure. Impression: - Diverticulosis in the recto-sigmoid colon and in the sigmoid colon. Biopsied. - Three 1 to 2 mm polyps in the rectum and in the sigmoid colon, removed with a jumbo cold forceps. Resected and retrieved. - Two 1 to 2 mm polyps in the sigmoid colon and in the ascending colon, removed with a hot snare. Resected and retrieved. Recommendation: - Repeat colonoscopy in 3 years for surveillance. - Continue present medications. Procedure Code(s): --- Professional --- 56479, Colonoscopy, flexible; with removal of tumor(s), polyp(s), or other lesion(s) by snare technique 05179, 59, Colonoscopy, flexible; with biopsy, single or multiple 25871, Unlisted procedure, colon CPT copyright 2021 [employer]. All rights reserved. The codes documented in this report are preliminary and upon contract specialist review may (more content not included)... Normal [facility] MR/POSTOP.[place] 06-08-2024 MR/POSTOP.[facility] Medical Records Department [address] [place] [address] Anesthesia Postop Eval I 06/08/24 1158 MR#: [id number] Acct: [id number] Name: RONNY DAY Rep #: [id number] : 1975 49 From: Rebel Guzmán PCP: Dr. Silvestre Stanley MD Status:[facility] Y Race: C Location: [place] [address] Anesthesia: Postop Eval I Current Vital Signs Temperature: 98.6 F Pulse Rate: 70 Blood Pressure: 104/61 Respiratory Rate: 16 Pulse Ox: 96 Oxygen Delivery Method: Room Air Assessment Airway patent: Yes Spontaneous unlabored respirations: Yes Mental status: Awake and Calm nausea: No Vomiting: No Anesthesia Complication: No Fluid Hydration Crystalloid volume administer (ml): 70 Total IV fluid infused: 70 Progress Note Anesthesia document: Postop Eval 1 completed: Yes 06/08/24 1159 Date Rebel Guzmán Cosigner Signature: Date CC: Signed Normal [facility] MR/[id number] 06-08-2024 [facility] Medical Records Department [address] [place] [address] Anesthesia Postop Eval II 06/08/24 1750 MR#: [id number] Acct: [id number] Name: RONNY DAY Rep #: [id number] : 1975 49 From: Beau Farfan MD PCP: Dr. Silvestre Stanley MD Status:[facility] Y Race: C Location: [place] Anesthesia Postop Eval I Sum Postop Eval Completion status Anesthesia document: Postop Eval 1 completed: Yes Anesthesia Postop Eval I Summary Anesthesia Postop Eval I Summary: Anesthesia Postop Eval I: Assessment Summary Airway patent Yes 06/08/24 11:59 [email or web address] Spontaneous unlabored Yes 06/08/24 11:59 [email or web address] respirations Mental status Awake,Calm 06/08/24 11:59 [email or web address] nausea No 06/08/24 11:59 [email or web address] Vomiting No 06/08/24 11:59 [email or web address] Anesthesia Postop Eval I: Fluid Summary Crystalloid volume administer 70 06/08/24 11:59 [email or web address] (ml) Colloids volume administered ( ml) Blood Product volume administered (ml) Total IV fluid infused 70 06/08/24 11:59 [email or web address] Anesthesia Postop Eval I: Summary Notes Anesthesia Complication No 06/08/24 11:59 [email or web address] Anesthesia Complication Comment: Post-operative progress note Anesthesia: Postop Eval II Evaluation Mental status: Awake Pain Level: 0 nausea: No Vomiting: No 06/08/24 1750 Date Beau Valadez Signature: Date CC: Signed Normal [facility] Surgery Specimen Level Yasmany 06-08-2024 Surgery Specimen Level IV Patient Age/Sex Location Account Attending Physician RONNY DAY 49/M EN [id number] John Lawton DO Specimen: [id number] Received: 06/08/24 Status: LINDA Chilel Num: [id number] Spec Type: COLON BX Subm Dr: John Lawton DO HEADEMANI OPERATION: Colonoscopy with polypectomy and cautery PRE-OP DIAGNOSIS: Colon cancer screening TISSUE SUBMITTED: A- Ascending colon polyp, B- Transverse colon biopsy, C- Sigmoid colon biopsy,D- Sigmoid polyp, E- Rectal polyp biopsy MICROSCOPIC DIAGNOSIS A. Ascending colon polyp, biopsy: Fragments of tubular adenoma. B. Transverse colon, biopsy: Colonic mucosa with hyperplastic change. C. Sigmoid colon, biopsy: Fragments of colonic mucosa with focal hyperplastic change. D. Sigmoid colon polyp, biopsy: Fragments of tubular adenoma. E. Rectal polyp, biopsy: Fragments of tubular adenoma. Fragments of hyperplastic polyp. AM. 06/09/2024 MICROSCOPIC DESCRIPTION Slides are reviewed. GROSS DESCRIPTION A. Received in fixative is one container labeled with the patient's name and designated Ascending colon polyp. The specimen consists of multiple irregular fragments of light combs soft tissue that in aggregate measure 1.5 x 0.7 x 0.1 cm. The specimen is totally submitted in one cassette. B. Received in fixative is one container labeled with the patient's name and designated Transverse colon biopsy. The specimen consists of one irregular fragment of light combs soft tissue that measures 0.6 x 0.5 x 0.1 cm. The specimen is totally submitted in one cassette. C. Received in fixative is one container labeled with the patient's name and designated Sigmoid colon biopsy. The specimen consists of two irregular fragments of light combs soft tissue that in aggregate measure 0.7 x 0.6 x 0.1 cm. The specimen is totally submitted in one cassette. D. Received in fixative is one container labeled with the patient's name and designated Sigmoid polyp. The specimen consists of multiple irregular fragments of light combs soft tissue that in aggregate measure 1.0 x 0.6 x 0.1 cm. The specimen is totally submitted in one cassette. E. Received in fixative is one container labeled with the patient's name and designated Rectal polyp. The specimen consists of multiple irregular fragments of light combs soft Patient Age/Sex Location Account Attending Physician RONNY DAY 49/M EN [id number] John Lawton DO tissue that in aggregate measure 1.0 x 0.5 x 0.1 cm. The specimen is totally submitted in one cassette. 06/08/2024 TC:5 CPT:79683l6 Patient Age/Sex Location Account Attending Physician RONNY DAY 49/M EN [id number] John Lawton DO Signed (signature on file) Dr. Zak Barraza DO 06/09/24 1327 Normal [facility] Comment on above: Performed By: #### P KALEN ####[facility] [id number] [place], [address] Internal Medicine Office Vis itokaiser 05-14-2024 Internal Medicine Office Visit [facility] [address] [place] [address] [place] [address] [place] [address] OFFICE VISIT Date of Service: 05/15/24 MR#: [id number] Acct: [id number] Name: RONNY DAY Rep #: [id number] : 1975 Provider: Dr. Silvestre rose MD Age/Sex: 48/M Location: [facility] [place] Status: Signed Intake Vital Signs 01/10/24 14:28 04/21/24 09:40 05/15/24 09:33 Height 5 ft 10 in 5 ft 10 in 5 ft 10 in Weight: 247 lb BMI 35.4 BP 124/82 H Blood Pressure Location Lt brachial Position Sitting Respiration 17 Pulse 56 L Pulse Source Monitor Temp 97.4 F L Temp Source Temporal Pulse Oximetry (%) 95 Oxygen Delivery Method room air Intake Visit Reasons: 4 M FU Chief Complaint: 4 M FU Is patient in pain?: No Allergies Penicillins Allergy (Unknown, Verified 05/15/24 09:32) PT UNSURE OF REACTION Medications ???Medication ???Instructions ???Recorded ???Confirmed ???Type sildenafil 50 mg tablet 50 mg PO DAILY PRN sexual activity 05/15/24 05/15/24 Rx #30 tabs tadalafil 5 mg tablet (Cialis) 5 mg PO QDAY #30 tabs 05/15/24 05/15/24 Rx Nurse's Note: pt states that his sildenafil rx does not seem to be effective and causes nasal congestion PFSH Medical History (Updated 05/15/24 @ 12:[address] 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 At his last visit, he was started on sildenafil for erectile dysfunction. Therapy was also recommended as this was largely thought to be related to performance anxiety related. He is yet to start therapy. Found sildenafil somewhat helpful but not completely. Bilateral shoulder pain. Typically worse after using equipment at work. Has not tried anything for it only changes at work. Other chronic conditions are stable. ROS Const Constitutional: No body ache, chills, excessive sweating, fatigue, fever(s), frequent falls, headache(s), snoring, weight change, sleep problems, abnormal sleep pattern or change in appetite Eyes Eyes: No blurry vision, change in vision, floaters, visual disturbances, eye pain or Light sensitivity ENT ENT: No abnormal hearing, ear or mastoid pain, tinnitus, balance problems, nosebleed/epistaxis, nasal congestion, headache(s), neck pain or sore throat Resp Respiratory: No cough, excessive phlegm production, pain on inspiration, shortness of breath, snoring or wheezing Cardio Cardiology: No chest pain at rest, chest pain with exertion, excessive sweating, shortness of breath, dyspnea on exertion, lightheadedness, orthopnea or palpitations Gastro GI: No abdominal pain, change in bowel habits, constipation, cramping, diarrhea, nausea/dyspepsia or vomiting Genitourinary Male: No burning urination, painful urination, urinary incontinence or urinary frequency Musc Musculoskeletal: No abnormal gait, joint pain, back pain, limited range of motion, neck pain, numbness or tingling Skin Skin: No dry skin, redness, lesions, itchy eyes, rash or wounds Neuro Neurology: No abnormal gait, abnormal hearing, frequent falls, headache(s), memory loss, numbness, tingling or visual disturbances Psych Psychiatric: No abnormal sleep pattern, No anxiety, No change in appetite, No irritability, No memory loss and No Thoughts of harming yourself/Others Endo Endocrine: No cold intolerance, excessive sweating, fatigue, flushing, heat intolerance, increased thirst/drinking, increased hunger or weight change Aller/Imm Allergy/Immunologic: No itchy eyes, seasonal allergy symptoms, hives or wheezing Viral/Lymp Hematologic/Lymphati c: No easy bleeding, easy bruising, enlarged lymph nodes or other Exam Const General: cooperative, comfortable and no acute distress Orientation: alert, awake and oriented x3 HENMT Head: normal to inspection, normocephalic and atraumatic Ears: hearing grossly normal bilaterally Neck Neck: normal visual inspection, full ROM and supple Resp Effort Inspection: normal respiratory effort and able to speak in complete sentences Auscultation: Bilateral: (more content not included)... Normal [facility] Asymp Elective [id number] SARS-CoV-2 (COVID-19) RNA JAYLIN+probe Ql (Unsp spec) UPPER RESPIRATORY TRACT SWAB Normal [facility] Comment on above: Performed By: #### P PCOVD #### [place] [address] SARS-CoV-2 (COVID-19) RNA JAYLIN+probe Ql (Unsp spec) Negative for COVID19 (SARS CoV2) by RT-PCR or equivalent method. Normal Negative for COVID19 (SARS CoV2) by RT-PCR or equivalent method. [facility] Comment on above: Result Comment: This test was developed and its performance characteristics determined by [facility]'s [facility] [place]. This test has been authorized by FDA under an Emergency Use Authorization (EUA). This test has been validated in accordance with the FDA's Guidance Document Policy for Diagnostics Testing in Laboratories Certified to Perform High Complexity Testing under CLIA prior to Emergency use Authorization for Coronavirus Disease 2019 during the Public Health Emergency issued on August 29, 2019. Test performed by [facility], [facility] [place], [address] [place] [address]. Performed By: #### P PCOVD #### [place] [address] CNOVon 07-03-2021 CNOV Office Visit (UCWSTR) RONNY DAY ([id number]) 1975 M Date Time Provider Department 07/03/21 9:30 AM VANESSA LEE During your visit today, we recorded the following information about you: Temperature Pulse Respiration Blood pressure 97.5 degrees 54/minute 18/minute 104/60 Weight 99.3 kg Vanessa Lee PA-C 07/03/2021 10:57 AM Signed Subjective HPI HPI Ronny Day is a 46 year old male who presents today for covid testing because of recent exposure. He is not experiencing any symptoms at this point in time. Pt is vaccinated x 3, with booster in 06/15/21. BP 104/60 Pulse (!) 54 Temp 36.4 ?C (97.5 ?F) (Temporal Artery) Resp 18 Wt 99.3 kg (219 lb) SpO2 95% BMI 33.30 kg/m? 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 - Drug use: No Comment: hasnt somked marijuana since 2005 Review of Systems Constitutional: Negative for chills, fever and malaise/fatigue. HENT: Negative for congestion, ear pain and sore throat. Respiratory: Negative for cough, sputum production, shortness of breath and wheezing. Cardiovascular: Negative for chest pain. Gastrointestinal: Negative for diarrhea. Musculoskeletal: Negative for myalgias. Neurological: Negative for headaches. Objective BP 104/60 Pulse (!) 54 Temp 36.4 ?C (97.5 ?F) (Temporal Artery) Resp 18 Wt 99.3 kg (219 lb) SpO2 95% BMI 33.30 kg/m? Physical Exam Vitals and nursing note reviewed. Constitutional: Appearance: Normal appearance. He is not ill-appearing or toxic-appearing. HENT: Head: Normocephalic and atraumatic. Nose: No mucosal edema or rhinorrhea. Right Sinus: No maxillary sinus tenderness or frontal sinus tenderness. Left Sinus: No maxillary sinus tenderness or frontal sinus tenderness. Mouth/Throat: Pharynx: Uvula midline. No oropharyngeal exudate or posterior oropharyngeal erythema. Tonsils: No tonsillar abscesses. Cardiovascular: Rate and Rhythm: Normal rate and regular rhythm. Heart sounds: Normal heart sounds. Pulmonary: Effort: Pulmonary effort is normal. Breath sounds: Normal breath sounds. No decreased breath sounds, wheezing, rhonchi or rales. Musculoskeletal: Cervical back: Normal range of motion. Lymphadenopathy: Head: Right side of head: No submental, submandibular, tonsillar, preauricular, posterior auricular or occipital adenopathy. Left side of head: No submental, submandibular, tonsillar, preauricular, posterior auricular or occipital adenopathy. Cervical: No cervical adenopathy. Right cervical: No superficial or posterior cervical adenopathy. Left cervical: No superficial or posterior cervical adenopathy. Skin: General: Skin is warm and dry. Neurological: Mental Status: He is alert and oriented to person, place, and time. Psychiatric: Mood and Affect: Affect normal. ASSESSMENT/PLAN: 1. Exposure to COVID-19 virus - ICD9: V01.79, ICD10: Z20.822 Patient desires covid testing d/t recent exposure. Pt is asymptomatic at this time. Discussed quarantine guidelines per the public health department. Results will be released to [facility] within 24-48 hours. Discussed mask, social distancing,and good handwashing. Symptoms suggestive of COVID infection discussed at length, and advised retesting days 3-5 should patient develop symptoms . - ASYMPTOMATIC ELECTIVE COVID-19 Reviewed red flags with patient and when to seek care sooner. The patient indicates understanding of these issues and agrees with the plan. Vanessa Lee PA-C Referring Provider: SELF [200] Allergies As of Date: 07/03/2021 Noted Allergy Reaction PENICILLINS 09/29/2007 Comments: Unknown Date Reviewed: 07/03/2021 Reviewed by: Hina Olivares - Fully Assessed Reason for Visit: Covid19 Concern [1751] Cmt: exposure Primary Visit Diagnosis:Exposure to COVID-19 virus [Z20.822] Order(s):ASYMPTOMATI C ELECTIVE COVID-19 [SQPPCOVD] Order #: [id number] FUTURE Prescriptions as of 07/03/2021 - omeprazole (PRILOSEC) 20 mg capsule Take 1 capsule by mouth daily before breakfast. 1/2 hr before meal. - loratadine (CLARITIN) 10 mg tablet Take 1 tablet by mouth once daily. - clobetasol 0.05 % ointment Apply to active itching red lesions or spots selectively on Right and Left Lower Legs once to twice per day (qday to bid) as directed and tolerated, until clear, and then stop or taper off as able to bland moisturizing cream (eg. CeraVe or Cetaphil). AVOID face, eyes, eyelids, and (more content not included)... Normal [facility] .GFRon 12-10-2017 eGFR (non-black) mL/min/{1.73_m2} Normal [facility] ([place]) Comment on above: Result Comment: GFR Population mean for , Non- Americans Ages 20-29 = 116 mL/min/1.73 sq.m. Ages 30-39 = 107 mL/min/1.73 sq.m. Ages 40-49 = 99 mL/min/1.73 sq.m. Ages 50-59 = 93 mL/min/1.73 sq.m. Ages 60-69 = 85 mL/min/1.73 sq.m. Ages 70+ = 75 mL/min/1.73 sq.m.Chronic Kidney Disease: Less than 60 mL/min/1.73 square metersEnd Stage Renal Disease: Less than 15 mL/min/1.73 square meters Performed By: #### T SH, LIPID, CMP, GFR ####[facility] [place], [place] [address] eGFR (non-black) 92 ml/min/1.73sqm Normal A [facility] ([place]) Comment on above: Result Comment: GFR Population mean for , Non- Americans Ages 20-29 = 116 mL/min/1.73 sq.m. Ages 30-39 = 107 mL/min/1.73 sq.m. Ages 40-49 = 99 mL/min/1.73 sq.m. Ages 50-59 = 93 mL/min/1.73 sq.m. Ages 60-69 = 85 mL/min/1.73 sq.m. Ages 70+ = 75 mL/min/1.73 sq.m.Chronic Kidney Disease: Less than 60 mL/min/1.73 square metersEnd Stage Renal Disease: Less than 15 mL/min/1.73 square meters Performed By: #### T SH, LIPID, CMP, GFR ####[address] [place], [place] [address] CMPon 12-10-2017 Alanine aminotransferase (ALT) 21 U/L Normal 10-35 [facility] ([place]) Comment on above: Performed By: #### T SH, LIPID, CMP, GFR ####[address] [place] [place], [place] [address] Albumin 4.7 G/dL Normal 3.5-5.0 [facility] ([place]) Comment on above: Performed By: #### T SH, LIPID, CMP, GFR ####[address] [place], [place] [address] Albumin/Globulin Ratio 1.8 {ratio} Normal 1.1-2.5 [facility] ([place]) Comment on above: Performed By: #### T SH, LIPID, CMP, GFR ####[address] [place], [place] [address] Alk Phos 56 IU/L Normal 40-135 [facility] ([place]) Comment on above: Performed By: #### T SH, LIPID, CMP, GFR ####[address] [place], [place] [address] Aspartate aminotransferase (AST) 19 U/L Normal 10-40 [facility] ([place]) Comment on above: Performed By: #### T SH, LIPID, CMP, GFR ####[address] [place], [place] [address] Bili Total 0.3 mg/dL Normal 0.2-1.0 [facility] ([place]) Comment on above: Performed By: #### T SH, LIPID, CMP, GFR ####[address] [place], [place] [address] BUN/Creatinine Ratio 21 ratio Normal 7-27 [facility] ([place]) Comment on above: Performed By: #### T SH, LIPID, CMP, GFR ####[address] [place], [place] [address] Calcium 9.5 mg/dL Normal 8.4-10.2 [facility] ([place]) Comment on above: Performed By: #### T SH, LIPID, CMP, GFR ####[address] [place], [place] [address] Chloride 104 mmol/L Normal 98-107 [facility] ([place]) Comment on above: Performed By: #### T SH, LIPID, CMP, GFR ####[address] [place], [place] [address] CO2 30 mmol/L High 22-29 [facility] ([place]) Comment on above: Performed By: #### T SH, LIPID, CMP, GFR ####[address] [place], [place] [address] Creatinine 1.1 mg/dL Normal 0.6-1.2 [facility] ([place]) Comment on above: Performed By: #### T SH, LIPID, CMP, GFR ####[address] [place] [place], [place] [address] Electrolyte Balance 8.0 mEq/L Normal [facility] ([place]) Comment on above: Performed By: #### T SH, LIPID, CMP, GFR ####[address] [place], [place] [address] Globulin 2.6 G/dL Normal [facility] ([place]) Comment on above: Performed By: #### T SH, LIPID, CMP, GFR ####[address] [place], [place] [address] Glucose mass conc 85 mg/dL Normal 70-105 [facility] ([place]) Comment on above: Performed By: #### T SH, LIPID, CMP, GFR ####[address] [place], [place] [address] Potassium molar conc 4.4 mmol/L Normal 3.5-5.1 [facility] ([place]) Comment on above: Performed By: #### T SH, LIPID, CMP, GFR ####[address] [place], [place] [address] Protein 7.3 G/dL Normal 6.0-8.3 [facility] ([place]) Comment on above: Performed By: #### T SH, LIPID, CMP, GFR ####[address] [place], [place] [address] Sodium 142 mmol/L Normal 136-146 [facility] ([place]) Comment on above: Performed By: #### T SH, LIPID, CMP, GFR ####[address] [place], [place] [address] Urea nitrogen 22.7 mg/dL High 7.0-18.0 [facility] ([place]) Comment on above: Performed By: #### T SH, LIPID, CMP, GFR ####[address] [place], [place] [address] LIPIDon 12-10-2017 Cholesterol 200 mg/dL Normal 131-200 [facility] ([place]) Comment on above: Result Comment: Chol esterol Reference Interval:Less than 200 [id number] Borderline high [id number] and above High risk Performed By: #### T SH, LIPID, CMP, GFR ####[address] [place], [place] [address] HDL Cholesterol 44 mg/dL Normal 35-90 [facility] ([place]) Comment on above: Result Comment: HDL Reference Interval:Less than 40 Low - high risk60 or above Optimal/lowers risk Performed By: #### T SH, LIPID, CMP, GFR ####[address] [place], [place] [address] LDL Cholesterol 122 mg/dL Normal 0-130 [facility] ([place]) Comment on above: Result Comment: LDL is a calculated result and requires a 12-hr fast.LDL Reference Interval:Less than 100 [id number] Near or above [id number] Borderline high [id number] High [id number] and above Very high risk Performed By: #### T SH, LIPID, CMP, GFR ####[address] [place], [place] [address] Triglyceride 169 mg/dL High 40-150 [facility] ([place]) Comment on above: Result Comment: Trig lyceride Reference Interval:Less than 150 [id number] Borderline high [id number] High [id number] or higher Very high risk Performed By: #### T SH, LIPID, CMP, GFR ####[address] [place], [place] [address] TSHon 12-10-2017 Thyroid stimulating hormone (TSH) 1.17 mcIU/mL Normal 0.27-4.20 [facility] ([place]) Comment on above: Performed By: #### T SH, LIPID, CMP, GFR ####[address] [place], [place] [address] XR ANKLE MINIMUM 3 VIEWS RIG HTon 12-10-2017 XR ANKLE MINIMUM 3 VIEWS RIGHT ORIGINALXR ANKLE MINIMUM 3 VIEWS RIGHT CLINICAL STATEMENT: rt ankle pain , no known injury COMPARISON: None FINDINGS: There is irregularity of the bone at the tip of the lateral malleolus with suggestion of a small nondisplaced avulsion fracture. No other significant bony abnormality is seen at the ankle. Ankle joint is normal with no osteochondral defects or significant degenerative change. Posterior calcaneal enthesopathy. There is some lateral and anterior soft tissue swelling. IMPRESSION: Soft tissue swelling at the ankle. Question a small avulsion from the tip of the lateral malleolus. Correlate with any recent history of injury and with point tenderness. Interpreted By: Flo Gonzales MDPreliminary Report By: Flo Gonzales MDElectronically Signed By: Flo Gonzales MD Dictated Date: 12/10/2017 6:52:04 PM Prelim Date: 12/10/2017 6:52:04 PM Sign Date: 12/10/2017 6:53:22 PM Normal [facility] ([place]) Vital Signs Date Time Vital Sign Value Performing Clinician Orlando brantley 02-08-2025 08:45-0400 Body height 177.[address] Silvestre Stanley MD Work Phone: [facility] 02-08-2025 08:45-0400 Body mass index (BMI) [Ratio] 33.3 kg/m2 Dr. Silvestre Stanley MD Work Phone: [facility] 02-08-2025 08:45-0400 Body temperature 97.4 [degF] Dr. Silvestre Stanley MD Work Phone: [facility] 02-08-2025 08:45-0400 Body weight 105.[address] Silvestre Stanley MD Work Phone: [facility] 02-08-2025 08:45-0400 Diastolic blood pressure 60 mm[Hg] Dr. Silvestre Stanley MD Work Phone: [facility] 02-08-2025 08:45-0400 Heart rate 56 /min Dr. Silvestre Stanley MD Work Phone: [facility] 02-08-2025 08:45-0400 Respiratory rate 18 /min Dr. Silvestre Stanley MD Work Phone: [facility] 02-08-2025 08:45-0400 SaO2% (BldA) [Mass fraction] 97 % Dr. Silvestre Stanley MD Work Phone: [facility] 02-08-2025 08:45-0400 Systolic blood pressure 120 mm[Hg] Dr. Silvestre Stanley MD Work Phone: [facility] 01-21-2025 08:02-0400 Body height 177.[address] Silvestre Stanley MD Work Phone: [facility] 01-21-2025 08:02-0400 Body mass index (BMI) [Ratio] 33.4 kg/m2 Dr. Silvestre Stanley MD Work Phone: [facility] 01-21-2025 08:02-0400 Body weight 105.[address] Silvestre Stanley MD Work Phone: [facility] 01-18-2025 08:25-0400 Body height 177.[address] Silvestre Stanley MD Work Phone: [facility] 01-18-2025 08:25-0400 Body mass index (BMI) [Ratio] 32.8 kg/m2 Dr. Silvestre Stanley MD Work Phone: [facility] 01-18-2025 08:25-0400 Body temperature 97.9 [degF] Dr. Silvestre Stanley MD Work Phone: [facility] 01-18-2025 08:25-0400 Body weight 103.[address] Silvestre Stanley MD Work Phone: [facility] 01-18-2025 08:25-0400 Diastolic blood pressure 78 mm[Hg] Dr. Silvestre Stanley MD Work Phone: [facility] 01-18-2025 08:25-0400 Heart rate 62 /min Dr. Silvestre Stanley MD Work Phone: [facility] 01-18-2025 08:25-0400 Respiratory rate 16 /min Dr. Silvestre Stanley MD Work Phone: [facility] 01-18-2025 08:25-0400 SaO2% (BldA) [Mass fraction] 96 % Dr. Silvestre Stanley MD Work Phone: [facility] 01-18-2025 08:25-0400 Systolic blood pressure 124 mm[Hg] Dr. Silvestre Stanley MD Work Phone: [facility] 12-22-2024 09:37-0400 Body height 177.[address] Silvestre Stanley MD Work Phone: [facility] 12-22-2024 09:37-0400 Body mass index (BMI) [Ratio] 33.3 kg/m2 Dr. Silvestre Stanley MD Work Phone: [facility] 12-22-2024 09:37-0400 Body weight 105.[address] Silvestre Stanley MD Work Phone: [facility] 10-19-2024 08:20-0400 Body mass index (BMI) [Ratio] 34.5 kg/m2 Dr. Silvestre Stanley MD Work Phone: [facility] 10-19-2024 08:20-0400 Body temperature 97.3 [degF] Dr. Silvestre Stanley MD Work Phone: [facility] 10-19-2024 08:20-0400 Body weight 109.[address] Silvestre Stanley MD Work Phone: [facility] 10-19-2024 08:20-0400 Diastolic blood pressure 78 mm[Hg] Dr. Silvestre Stanley MD Work Phone: [facility] 10-19-2024 08:20-0400 Heart rate 66 /min Dr. Silvestre Stanley MD Work Phone: [facility] 10-19-2024 08:20-0400 Respiratory rate 16 /min Dr. Silvestre Stanley MD Work Phone: [facility] 10-19-2024 08:20-0400 SaO2% (BldA) [Mass fraction] 95 % Dr. Silvestre Stanley MD Work Phone: [facility] 10-19-2024 08:20-0400 Systolic blood pressure 124 mm[Hg] Dr. Silvestre Stanley MD Work Phone: [facility] Encounters Encounter Date Encounter Type Care Provider Facility Start: 04-26-2025 End: 04-26-2025 ambulatory Silvestre Stanley Facility:[facility] [place] Start: 02-08-2025 End: 02-08-2025 Patient encounter procedure Sushila BEAVERS -[facility] Work Phone: Start: 02-08-2025 End: 02-08-[address] Silvestre Stanley MD Work Phone: -[facility] Start: 01-21-2025 End: 01-21-[address] Harlan Gaitan MD -[facility] Work Phone: Start: 01-21-2025 End: 01-21-[address] Silvestre Stanley MD Work Phone: -[facility] Start: 01-18-2025 End: 01-18-[address] Silvestre Stanley MD -[facility] Work Phone: Start: 01-18-2025 End: 01-18-[address] Silvestre Stanley MD Work Phone: -[facility] Start: 01-18-2025 End: 01-18-2025 ambulatory [facility] Facility:[facility] Start: 01-14-2025 End: 01-14-[address] Silvestre Stanley MD Work Phone: -[facility] Therapy Start: 01-14-2025 End: 01-14-[address] Harlan Gaitan MD -[facility] Therapy Work Phone: Start: 01-14-[address] Harlan loomis MD -Physical Therapy Work Phone: Start: 12-22-2024 End: 12-22-[address] Turner Dial MD -[facility] Start: 12-22-2024 End: 12-22-[address] Silvestre Stanley MD Work Phone: [facility] Work Phone: Start: 10-19-2024 End: 10-19-[address] Silvestre Stanley MD -[facility] Work Phone: Start: 10-19-2024 End: 10-19-2024 ambulatory [facility] Facility:[facility] Start: 07-20-2024 End: 07-20-2024 ambulatory [facility] Facility:[facility] Start: 06-08-2024 End: 06-08-2024 ambulatory [facility] Facility:[facility] Start: 2024 End: 2024 [facility] Start: 01-10-[address] Silvestre Stanley MD Work Phone: [facility] Start: 12-10-2017 End: 12-11-2017 [facility] LUKAS MAURICIO Facility:[facility] Procedures Date Procedure Procedure Detail Performing Clinician Start: 12-22-2024 X-ray of knee, four or more views Dr. Silvestre Stanley MD Work Phone: Plan of Treatment Date Care Activity Detail Author Start: 01-18-2025 CBC W Auto Differential panel - Blood [facility] Start: 01-18-2025 Comprehensive metabolic 2000 panel - Serum or Plasma [facility] Start: 01-18-2025 Lipid 1996 panel - Serum or Plasma [facility] Start: 12-22-2024 Patient referral [facility] Work Phone: Start: 12-22-2024 X-ray of knee, four or more views Knee 4 or More Views [facility] Start: 12-22-2024 XR Knee GE 4 Views [facility] Alanine aminotransfe rase [Enzymatic activity/volume] in Serum or Plasma [facility] Albumin [Mass/volume ] in Serum or Plasma [facility] Alkaline phosphatase [Enzymatic activity/volume] in Serum or Plasma [facility] Anion gap in Serum or Plasma [facility] Bilirubin, total measurement [facility] BUN/Creatinine ratio [facility] Calcium [Mass/volume ] in Serum or Plasma [facility] Carbon dioxide, tota l [Moles/volume] in Central venous blood [facility] Cholesterol [Mass/vo lume] in Serum or Plasma [facility] Cholesterol in HDL [Mass/volume] in Serum or Plasma [facility] Creatinine [Mass/vol ume] in Serum or Plasma [facility] Erythrocyte mean cor puscular volume determination [facility] Glucose [Mass/volume ] in Serum or Plasma [facility] Hematocrit [Volume F raction] of Blood [facility] Hemoglobin [Mass/vol ume] in Blood [facility] Leukocytes [#/volume ] in Blood [facility] Low density lipoprot ein cholesterol measurement [facility] Mean corpuscular hem oglobin concentration determination [facility] Mean corpuscular hem oglobin determination [facility] Measurement of renal function [facility] Neutrophil count [facility] Neutrophil percent differential count [facility] Patient referral [facility] Work Phone: Platelets [#/volume] in Blood [facility] Potassium measurement [facility] Red blood cell count [facility] Red cell distributio n width determination [facility] Serum chloride measurement [facility] Sodium measurement [facility] Total cholesterol:HD L ratio measurement [facility] Total protein measurement [facility] Triglycerides measurement [facility] Urea nitrogen [Mass/ volume] in Serum or Plasma [facility] VLDL cholesterol measurement [facility] Immunizations Immunization Date Immunization Notes Care Provider Fa cility 07-12-2021 tetanus toxoid, redu magi diphtheria toxoid, and acellular pertussis vaccine, adsorbed Dr. Silvestre Stanley MD Work Phone: [facility] Payers Date Payer Category Payer Unknown [id number] 2024 Self-pay 2024 Unknown [id number] 2017 Unknown [id number] Unknown [id number] Unknown [id number] 2.16.8 [id number] Unknown [id number] 2.16.8 [id number] Unknown [id number] 2.16.8 [id number] Unknown [id number] 2.16.8 [id number] Unknown [id number] 2.16.8 [id number] Unknown [id number] 2.16.8 [id number] Unknown [id number] 2.16.8 [id number] Unknown [id number] 2.16.8 [id number] Unknown [id number] 2.16.8 [id number] Unknown [id number] 2.16.8 [id number] Unknown [id number] 2.16.8 [id number] Unknown [id number] 2.16.8 [id number] Unknown [id number] 2.16.8 [id number] Social History Date Type Detail Facility Start: 06-08-2024 [facility] Start: 1975 Sex Assigned At Male [facility] Medical Equipment Procedure Code Equipment Code Equipment Origin al Text Equipment Identifier Dates Colonoscopy RESOLUTION 360 C LIP 235 CM FDA Start: 06-08-2024 Colonoscopy RESOLUTION 360 C LIP 235 CM FDA Start: 06-08-2024 Colonoscopy RESOLUTION 360 C LIP 235 CM FDA Start: 06-08-2024 Colonoscopy RESOLUTION 360 C LIP 235 CM FDA Start: 06-08-2024 Colonoscopy RESOLUTION 360 C LIP 235 CM FDA Start: 06-08-2024 Colonoscopy RESOLUTION 360 C LIP 235 CM FDA Start: 06-08-2024 Colonoscopy RESOLUTION 360 C LIP 235 CM FDA Start: 06-08-2024 Clinical Notes 07-03-2021 to 02-08-2025 Note Date & Type Note Facility 02-08-[address] [facility] 02-08-2025 Progress note Note Date/Time February 08, 2025 9:12am [facility] [address] [place] [address] [place] [address] OFFICE VISIT Date of Service: 02/08/25 MR#: [id number] Acct: [id number] Name: RONNY DAY Rep #: [id number] : 1975 Provider: NIMESH elizondo Ungerer Age/Sex: 49/M Location: [facility] Status: Signed Intake Vital Signs 01/21/25 08:02 02/08/25 08:45 Height 5 ft 10 in 5 ft 10 in Weight: 233 lb 232 lb 8 oz BMI 33.4 33.3 BP 120/60 Blood Pressure Location Lt brachial Position Sitting Respiration 18 Pulse 56 L Pulse Source Monitor Temp 97.4 F L Temp Source Temporal Pulse Oximetry (%) 97 Oxygen Delivery Method room air Intake Visit Reasons: Cough,headache Chief Complaint: Headache, Cough Visitor Services Coordinator Required: No Accompanied by: Self Is patient in pain?: No Allergies Penicillins Allergy (Unknown, Verified 02/08/25 08:40) PT UNSURE OF REACTION Medications ?Medication ?Instructions ?Recorded ?Confirmed ?Type amlodipine 5 mg tablet 5 mg PO QDAY #90 tabs 02/08/25 Rx tadalafil 5 mg tablet (Cialis) 5 mg PO QDAY #90 tabs 0 10/19/24 02/08/25 Rx sildenafil 50 mg tablet 25 mg (1/2 x 50 mg) PO DAILY PRN 01/18/25 02/08/25 Rx sexual activity 1 month #20 tabs azithromycin 250 mg tablet See Rx Instructions PO .COM PLEX #6 02/08/25 02/08/25 Rx (Zithromax) tabs Nurse's Note: Patient presents with a cough, headaches, and SOB for last 2 days. Patients sayshe was exposed to bacterial bronchitis from partner, who got it from work. His partner has had symptoms for last 5 days. 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 Symptoms began approximately two days ago, initially mild but have gradually worsened. Location: Symptoms are primarily respiratory, with the cough originating from the chest. Duration: Symptoms have been continuous for two days, with increased intensity in the evenings. Character/Quality: The cough is productive, accompanied by a sensation of tightness in the chest. Severity: Severity rated at 5/10, impacting sleep and daily activities. Modifying Factors: Symptoms slightly improve with rest . Associated Symptoms: Occasional headaches, sinus pressure, dry eyes, and mild fatigue, no fever or chills but has felt warm. Context: Recently exposed to bacterial bronchitis that his significant others workplace as well as her being infected.. Risk Factors: History of smoker Impact on Daily Life: Difficulty performing routine tasks and reduced exercise tolerance. . ROS Const Constitutional: Positive for headache(s); No body ache, chills, excessive sweating, fatigue, fever(s), frequent falls, snoring, weakness, weight change, sleep problems or change in appetite Eyes Eyes: No blurry vision, change in vision, eye pain or Light sensitivity ENT ENT: Positive for headache(s); No abnormal hearing, ear or mastoid pain, tinnitus, nasal congestion, neck pain or sore throat Resp Respiratory: Positive for cough; No shortness of breath, snoring or wheezing Cardio Cardiology: No chest pain at rest, chest pain with exertion, excessive sweating,shortness of breath, lightheadedness, orthopnea or palpitations Gastro GI: No abdominal pain, change in bowel habits, constipation, cramping, diarrhea,nausea/dyspepsia or vomiting Genitourinary Male: No burning urination, painful urination, urinary incontinence or urinary frequency Musc Musculoskeletal: No abnormal gait, joint pain, back pain, limited range of motion, neck pain, numbness or tingling Skin Skin: No dry skin, redness, lesions, itchy eyes, rash or wounds Neuro Neurology: Positive for headache(s); No abnormal gait, abnormal hearing, abnormal speech, dizziness, weakness, frequent falls, memory loss, numbness or tingling Psych Psychiatric: No anxiety, No change in appetite, No depression, No memory loss and No Thoughts of harming yourself/Others Endo Endocrine: No cold intolerance, excessive sweating, fatigue, flushing, heat intolerance, increased thirst/drinking, increased hunger or weight change Aller/Imm Allergy/Immunologic: No itchy eyes, seasonal allergy symptoms, hives or wheezing Viral/Lymp Hematologic/Lymphatic: No easy bleeding, easy bruising, enlarged lymph nodes or other Exam Const General: cooperative, healthy appearing and well groomed Nutritional Appearance: average body habitus Orientation: alert and oriented x3 HENMT Head: normal to inspection Ears: hearing grossly normal bilaterally, TM's abnormal bilaterally, right TM abnormal and left TM abnormal Nose: mucous membranes and turbinates abnormal Face and sinus: sinuses tender and sinus tenderness Mouth: oral mucosae normal and lip normal Throat: posterior oropharynx abnormal (erythema) and abnormal tonsil on the right exudates and bilaterally hypertrophy Eyes General: appearance normal, both eyes and all related structures Neck Neck: normal visual inspection, no lymphadenopathy and trachea midline Thyroid: thyroid normal Lymphatic: no lymphadenopathy noted Chest Chest palpation & inspection: normal inspection of the chest Resp Effort & Inspection: normal respiratory effort, able to speak in complete sentences and symmetric chest movement Auscultation: Bilateral: Clear to Auscultation Cardio Palpation: normal PMI Rate: regular rate Rhythm: regular rhythm Heart Sounds: S1 normal and S2 normal GI Inspection: normal to inspection Palpation: soft and nontender Musc Musculoskeletal: No joint tenderness, joint redness or joint warmth Skin General: no rashes or lesions noted Neuro General: patient alert and patient oriented x3 Extrem General: normal to inspection and capillary refill normal Psych Appearance: grossly normal and well kempt Coding Level of Care Code Established Pt Off vis,est,level 3 Patient Type Established History Problem Focused Exam Problem Focused Medical Decision Making Low Complexity Diagnoses Sinusitis, acute J01.90 Time Spent (min) 30 Assessment and Plan Assessment and Plan (1) Sinusitis, acute: Status: Acute Plan: Due to history of exposure to bacterial infection and current symptoms will prescribe Zithromax. Discussed with patient how to take doses along with takingTylenol and ibuprofen for fever pain patient verbalizes understanding follow-up as needed Medications: New azithromycin (Zithromax) For 250 mg dose pack: take 500 mg today (day 1), then 250 mg for 4 days (days 2-5) PO 6 tabs 0RF Plan Details Follow Up: As needed 02/08/25 0912 <Electronically signed by Sushila Sina er ROPE TIER-C> Date _ Sushila Gonzalez ROPE TIER-C Cosigner Signature: Date (if applicable) CC: ~ [facility] Work Phone: 1(971) 373-327307-17-2025 Discharge summary Author Eunice Collins [facility] Note Date/Time January 14, 2025 7:00 pm [facility] [address] [place] [address]. [address] [place] [address] / REHABILITATION SERVICES DISCHARGE SUMMARY MR#: [id number] Acct: [id number] Name: RONNY DAY Rep #: [id number] : 1975 49 From: Eunice BOWLES T Referring Dr.: Dr. Harlan Gaitan MD Status: REG RCR Insurance: [facility] SELF PAY INSURANCE Discharge Summary D/C summary: It has been my pleasure to treat RONNY DAY referred by Dr. Harlan Gaitan MD, with the diagnosis of Right Knee Pain for a total of 8 visit(s). Discharge Date: Please see the following information for a summary of their discharge status. Subjective Subjective: Patient reports that his knee is doing okay- he has muscle soreness in his thighs from Saturday. He generally does not have knee pain anymore it wasa little achy last night. Overall Improvement % Improvement: 50 Objective Objective/Function: Posture: forward head, rounded shoulders Gait: no deviation noted SLS: 15 seconds HR/TR: able Stairs: asc/desc no HR ROM: 0-120 degrees Strength: Ankle: 5/5, Knee: Left: Flexion: 58 Extn: 82 Right: Flexion: 60 Extn: 88 with pain Hip: 4+/5 throughout, Core: fair Flex: HS: moderate, Gastroc: moderate Goals Goal 1:: Patient will be I with HEP and progression Goal Progress: Goal Met Goal 2:: Patient will SLS for 30 sec without LOB Goal Progress: Goal Met Goal 3:: Patient will asc/desc 8 stairs recip without HR and pain Goal Progress: Goal Met Goal 4:: Patient will report 80% improvement Goal Progress: Progressing Plan Plan: Discharge to I HEP D/C Information d/c sentence: If there are questions or concerns regarding this patient's physical therapy, please feel free to call me at [phone]. Thank you for the referral of thispatient. Sincerely, Eunice Collins DPT Balance/Gait/Functional tests Balance/Special Test Scores Lower Extremity Functional Score: 61 Improvement % Improvement: 50 <Electronically signed by Eunice Collins DPT> 01/14/25 6930 CC: Dr. Silvestre Stanley MD; Dr. Harlan Gaitan MD ~ ELR Signed [facility] Work Phone: 1(209) 813-908107-17-2025 Discharge summary [facility] [address] [place] [address] [address] [place] [address] / REHABILITATION SERVICES DISCHARGE SUMMARY MR#: [id number] Acct: [id number] Name: RONNY DAY Rep #: [id number] : 1975 49 From: Eunice Collins DP T Referring Dr.: Dr. Harlan Gaitan MD Status: REG R Insurance: [facility] PAY INSURANCE Discharge Summary D/C summary: It has been my pleasure to treat RONNY DAY referred by Dr. Harlan Gaitan MD, with the diagnosis of Right Knee Pain for a total of 8 visit(s). Discharge Date: Please see the following information for a summary of their discharge status. Subjective Subjective: Patient reports that his knee is doing okay- he has muscle soreness in his thighs from Saturday. He generally does not have knee pain anymore it wasa little achy last night. Overall Improvement % Improvement: 50 Objective Objective/Function: Posture: forward head, rounded shoulders Gait: no deviation noted SLS: 15 seconds HR/TR: able Stairs: asc/desc no HR ROM: 0-120 degrees Strength: Ankle: 5/5, Knee: Left: Flexion: 58 Extn: 82 Right: Flexion: 60 Extn: 88 with pain Hip: 4+/5 throughout, Core: fair Flex: HS: moderate, Gastroc: moderate Goals Goal 1:: Patient will be I with HEP and progression Goal Progress: Goal Met Goal 2:: Patient will SLS for 30 sec without LOB Goal Progress: Goal Met Goal 3:: Patient will asc/desc 8 stairs recip without HR and pain Goal Progress: Goal Met Goal 4:: Patient will report 80% improvement Goal Progress: Progressing Plan Plan: Discharge to I HEP D/C Information d/c sentence: If there are questions or concerns regarding this patient's physical therapy, please feel free to call me at [phone]. Thank you for the referral of thispatient. Sincerely, Eunice Collins, DPT Balance/Gait/Functional tests Balance/Special Test Scores Lower Extremity Functional Score: 61 Improvement % Improvement: 50 01/14/25 0730 CC: Dr. Silvestre Stanley MD; Dr. Harlan Gaitan MD ~ ELR Signed [facility]04-21-2025 Evaluation note* Diagnosis Onset Date Resolution Status Admit Date Erectile dysfunction chronic Apr l 2024 8:15am Hypertension chronic October 19, 2024 8:15am Obesity (BMI 30-39.9) chronic Sep 8:15am Performance anxiety chronic October 19, 2024 8:15am Left knee pain acute December 22, 2024 9:37am Right knee pain acute November 9:37am [facility] Work Phone: 1(518) 489-321904-21-2025 Evaluation note* Diagnosis Onset Date Resolution Status Admit Date Erectile dysfunction chronic Apri l 2024 8:15am Hypertension chronic October 19, 2024 8:15am Obesity (BMI 30-39.9) chronic Sep 8:15am Performance anxiety chronic October 19, 2024 8:15am Bilateral primary osteoarthr itis of knee acute December 22, 2024 9:37am Left knee pain acute December 22, 2024 9:37am Right knee pain acute November 9:37am [facility] Work Phone: 1(544) 473-892204-21-2025 Evaluation note* Diagnosis Onset Date Resolution Status Admit Date Erectile dysfunction chronic Apri l 2024 8:15am Hypertension chronic October 19, 2024 8:15am Obesity (BMI 30-39.9) chronic Apr 2024 8:15am Performance anxiety chronic October 19, 2024 8:15am Bilateral primary osteoarthr itis of knee acute December 22, 2024 9:37am Left knee pain acute December 22, 2024 9:37am Right knee pain acute November 9:37am Bilateral primary osteoarthr itis of knee acute January 18, 2025 8:16am Anxiety and depression chronic Ju ly 2024 8:16am Erectile dysfunction chronic January 18, 2025 8:16am Hypertension chronic January 18, 025 8:16am Skin lesion chronic January 18 8:16am [facility] Work Phone: 1(236) 247-878204-21-2025 Evaluation note* Diagnosis Onset Date Resolution Status Admit Date Erectile dysfunction chronic Apri l 2024 8:15am Hypertension chronic October 19, 2024 8:15am Obesity (BMI 30-39.9) chronic Sep 8:15am Performance anxiety chronic October 19, 2024 8:15am Bilateral primary osteoarthr itis of knee acute December 22, 2024 9:37am Left knee pain acute December 22, 2024 9:37am Right knee pain acute November 9:37am Bilateral primary osteoarthr itis of knee acute January 18, 2025 8:16am Anxiety and depression chronic 2024 8:16am Erectile dysfunction chronic January 18, 2025 8:16am Hypertension chronic January 18, 2 025 8:16am Skin lesion chronic January 18 8:16am Bilateral primary osteoarthr itis of knee acute January 21, 2025 7:59am [facility] Work Phone: 1(355) 552-638404-21-2025 Evaluation note* Diagnosis Onset Date Resolution Status Admit Date Erectile dysfunction chronic Apri l 2024 8:15am Hypertension chronic October 19, 2024 8:15am Obesity (BMI 30-39.9) chronic Apr 2024 8:15am Performance anxiety chronic October 19, 2024 8:15am Bilateral primary osteoarthr itis of knee acute December 22, 2024 9:37am Left knee pain acute December 22, 2024 9:37am Right knee pain acute November 9:37am Bilateral primary osteoarthr itis of knee acute January 18, 2025 8:16am Anxiety and depression chronic 2024 8:16am Erectile dysfunction chronic January 18, 2025 8:16am Hypertension chronic January 18, 2 025 8:16am Skin lesion chronic January 18 8:16am Bilateral primary osteoarthr itis of knee acute January 21, 2025 7:59am Sinusitis, acute acute January 292024 8:31am [facility] Work Phone: [phone]) 903-514412-09-2024 [facility] Medical Records Department [address] [place] [address] History Physical Exam 06/08/24 1102 MR#: [id number] Acct: [id number] Name: RONNY DAY Rep #: [id number] : 1975 49 From: [facility] Friend PCP: Dr. Silvestre Stanley MD Status:[facility] Location: [place] [address] HPI - General General Date of Admission: 06/08/24 Date of Service: 06/08/24 Chief Complaint: Screening colonoscopy HPI Narrative RONNY DAY, is a 49 M who presents today for screening colonoscopy. He has never had a colonoscopy in the past. He has past medical history of tobacco abuse, obesity and mild anxiety depression. He also has a past medical history of obstructive sleep apnea. [facility] Medical History (Updated 06/03/24 @ 15:22 by Kelsey Tyler) Anxiety Alcohol use Smoker History of stress test Bilateral shoulder pain Performance anxiety Erectile dysfunction Colon cancer screening Preventative health care Insomnia Anxiety and depression Sleep apnea Home Medications ???Medication ???Instructions ???Recorded ???Last Taken ???Type sildenafil 50 mg tablet 50 mg PO DAILY PRN sexual activity 05/15/24 Unknown Rx #30 tabs tadalafil 5 mg tablet (Cialis) 5 mg PO QDAY #30 tabs 05/15/24 Unknown Rx Allergy/AdvReac Type Severity Reaction Status Date / Time Penicillins Allergy Unknown PT UNSURE Verified 06/03/24 15:14 OF REACTION Family History Grandfather Heart disease Myocardial infarction Uncle Cancer Surgical History (Updated 06/03/24 @ 15:22 by Kelsey Tyler) History of vasectomy History of hernia repair History of appendectomy Social History current occupational status: employed 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 Smoking Status: Current every day smoker tobacco type: cigarettes alcohol intake: former substance use type: does not use what type of physical activity do you participate in: walking ROS Review of Systems ROS Unobtainable: other Constitutional Constitutional: Denies fatigue, fever(s), poor appetite, weight gain or weight loss ENT HEENT: Denies mouth lesions Cardiovascular Cardiovascular: Denies abdominal bloating, abdominal edema or abdominal pain Respiratory/Chest Respiratory/Chest: Denies change in mental status, change in phlegm color, chest congestion or chest tightness Gastrointestinal Gastrointestinal: Denies belching, bloating, change in bowel habits, change in stool character, chewing difficulty, coffee ground emesis, constipation, cramping, diarrhea, dyspepsia, dysphagia, early satiety, excessive flatus, fecal incontinence, heartburn, hematemesis, hematochezia, hemorrhoids, loose stools, melena, nausea, odynophagia, rectal bleeding, tenesmus, vomiting or weight changes Genitourinary Genitourinary: Denies abdominal discomfort, burning urination or itching Musculoskeletal Musculoskeletal: Reports as per HPI; Denies muscle weakness or myalgias Integumentary Integumentary: Denies jaundice Neurologic Neurologic: Denies lack of coordination or weakness Psychiatric Psychiatric: Denies confusion, depression, memory loss, mood swings, paranoia or suicidal ideation Endocrine Endocrinology: Denies systems reviewed and no addt'l complaints, except as documented Hematologic/Lymphatic Hematologic/Lymphatic: Denies anemia, easy bleeding, easy bruising or lymphadenopathy Allergic/Immunologic Allergic/Immunologic: Denies systems reviewed and no addt'l complaints, except as documented Vital Signs Vital Signs Vital Signs: 06/08/24 10:20 06/08/24 10:20 Temperature 98.0 F Temperature Source Temporal Pulse Rate 67 Respiratory Rate 16 Respiratory Pattern Normal Blood Pressure 149/92 H Blood Pressure Mean 111 Blood Pressure Source Monitor Blood Pressure Position Semi-Fowlers Blood Pressure Location Left Arm Pulse Ox 98 Oxygen Delivery Method Room Air Weight Weight: 242 lb 9.6 oz Body Mass Index (BMI) 34.8 Physical Exam Const alert General Appearance: cooperative Orientation / Consciousness: oriented to person HEENT hearing grossly normal bilaterally Head and Scalp: normal to inspection Face and Sinus: face symmetric Nose: external nose normal Mouth: oral and palatal mucosa normal Eyes conjunctivae normal General Eye: normal appearance of both eyes Neck full ROM General: normal visual inspection Lymph Lymphatic: no lymphadenopathy noted Chest inspection of chest normal and palpation of chest normal Chest: symmetrical chest wall rise Resp normal respiratory effort Effort and Inspection: able to speak in complete sentences Cardio regular rate GI non-distended Percussion: normal to percussion Rectal (more content not included)...[facility]01-03-2022 Note HNO ID: [id number] Author: Vanessa Lee PA-C Service: ? 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 He is not experiencing any symptoms at this point in time. Pt is vaccinated x 3, with booster in 06/15/21. BP 104/60 Pulse (!) 54 Temp 36.4 ?C (97.5 ?F) (Temporal Artery) Resp 18 Wt 99.3 kg (219 lb) SpO2 95% BMI 33.30 kg/m? 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 - Drug use: No Comment: hasnt somked marijuana since 2005 Review of Systems Constitutional: Negative for chills, fever and malaise/fatigue. HENT: Negative for congestion, ear pain and sore throat. Respiratory: Negative for cough, sputum production, shortness of breath and wheezing. Cardiovascular: Negative for chest pain. Gastrointestinal: Negative for diarrhea. Musculoskeletal: Negative for myalgias. Neurological: Negative for headaches. Objective BP 104/60 Pulse (!) 54 Temp 36.4 ?C (97.5 ?F) (Temporal Artery) Resp 18 Wt 99.3 kg (219 lb) SpO2 95% BMI 33.30 kg/m? Physical Exam Vitals and nursing note reviewed. Constitutional: Appearance: Normal appearance. He is not ill-appearing or toxic-appearing. HENT: Head: Normocephalic and atraumatic. Nose: No mucosal edema or rhinorrhea. Right Sinus: No maxillary sinus tenderness or frontal sinus tenderness. Left Sinus: No maxillary sinus tenderness or frontal sinus tenderness. Mouth/Throat: Pharynx: Uvula midline. No oropharyngeal exudate or posterior oropharyngeal erythema. Tonsils: No tonsillar abscesses. Cardiovascular: Rate and Rhythm: Normal rate and regular rhythm. Heart sounds: Normal heart sounds. Pulmonary: Effort: Pulmonary effort is normal. Breath sounds: Normal breath sounds. No decreased breath sounds, wheezing, rhonchi or rales. Musculoskeletal: Cervical back: Normal range of motion. Lymphadenopathy: Head: Right side of head: No submental, submandibular, tonsillar, preauricular, posterior auricular or occipital adenopathy. Left side of head: No submental, submandibular, tonsillar, preauricular, posterior auricular or occipital adenopathy. Cervical: No cervical adenopathy. Right cervical: No superficial or posterior cervical adenopathy. Left cervical: No superficial or posterior cervical adenopathy. Skin: General: Skin is warm and dry. Neurological: Mental Status: He is alert and oriented to person, place, and time. Psychiatric: Mood and Affect: Affect normal. ASSESSMENT/PLAN: 1. Exposure to COVID-19 virus - ICD9: V01.79, ICD10: Z20.822 Patient desires covid testing d/t recent exposure. Pt is asymptomatic at this time. Discussed quarantine guidelines per the public health department. Results will be released to [facility] within 24-48 hours. Discussed mask, social distancing,and good handwashing. Symptoms suggestive of COVID infection discussed at length, and advised retesting days 3-5 should patient develop symptoms . - ASYMPTOMATIC ELECTIVE COVID-19 Reviewed red flags with patient and when to seek care sooner. The patient indicates understanding of these issues and agrees with the plan. JAREK Mckeon-[facility] for referral (narrative)No reason for referral information availableSt[facility] Work Phone: Summary Purpose Family History No Family History Records Found Relationship Condition Age at Onset Recorded Date/T evelio grandfather Cardiac disease Unknown Myocardial infarction Unknown uncle Malignant neoplasm Unknown Advance Directives No Advanced Directives Records FoundNo Advanced Directives Records FoundNo Advanced Directives Records Found Chief Complaint and Reason for Visit Chief Complaint Admit Date 3 M FU October 19, 2024 8:1 5am RIGHT KNEE December 22, 2024 9:37 am Room 2 December 22, 2024 9:45 am Reason for Visit Admit Date Erectile dysfunction October 19, 2024 8: 15am Hypertension October 19, 2024 8:1 5am Obesity (BMI 30-39.9) October 19, 2024 8 :15am Performance anxiety October 19, 2024 8:1 5am Left knee pain December 22, 2024 9:37 am Right knee pain December 22, 2024 9:37 am Reason for Visit Admit Date Erectile dysfunction October 19, 2024 8: 15am Hypertension October 19, 2024 8:1 5am Obesity (BMI 30-39.9) October 19, 2024 8 :15am Performance anxiety October 19, 2024 8:1 5am Bilateral primary osteoarthritis of knee December 22, 2024 9:37am Left knee pain December 22, 2024 9:37 am Right knee pain December 22, 2024 9:37 am Chief Complaint Admit Date 3 M FU October 19, 2024 8:1 5am RIGHT KNEE December 22, 2024 9:37 am Room 2 December 22, 2024 9:45 am JORJE KN PAIN/RX HERE January 14, 2025 7:00 am 3 m fu January 18, 2025 8:16 am Reason for Visit Admit Date Erectile dysfunction October 19, 2024 8: 15am Hypertension October 19, 2024 8:1 5am Obesity (BMI 30-39.9) October 19, 2024 8 :15am Performance anxiety October 19, 2024 8:1 5am Bilateral primary osteoarthritis of knee December 22, 2024 9:37am Left knee pain December 22, 2024 9:37 am Right knee pain December 22, 2024 9:37 am Bilateral primary osteoarthritis of knee January 18, 2025 8:16am Anxiety and depression January 18, 2025 8 :16am Erectile dysfunction January 18, 2025 8:1 6am Hypertension January 18, 2025 8:16 am Skin lesion January 18, 2025 8:16 am Chief Complaint Admit Date 3 M FU October 19, 2024 8:1 5am RIGHT KNEE December 22, 2024 9:37 am Room 2 December 22, 2024 9:45 am JORJE KN PAIN/RX HERE January 14, 2025 7:00 am 3 m fu January 18, 2025 8:16 am RIGHT KNEE January 21, 2025 7:59 am Reason for Visit Admit Date Erectile dysfunction October 19, 2024 8: 15am Hypertension October 19, 2024 8:1 5am Obesity (BMI 30-39.9) October 19, 2024 8 :15am Performance anxiety October 19, 2024 8:1 5am Bilateral primary osteoarthritis of knee December 22, 2024 9:37am Left knee pain December 22, 2024 9:37 am Right knee pain December 22, 2024 9:37 am Bilateral primary osteoarthritis of knee January 18, 2025 8:16am Anxiety and depression January 18, 2025 8 :16am Erectile dysfunction January 18, 2025 8:1 6am Hypertension January 18, 2025 8:16 am Skin lesion January 18, 2025 8:16 am Bilateral primary osteoarthritis of knee January 21, 2025 7:59am Chief Complaint Admit Date 3 M FU October 19, 2024 8:1 5am RIGHT KNEE December 22, 2024 9:37 am Room 2 December 22, 2024 9:45 am JORJE KN PAIN/RX HERE January 14, 2025 7:00 am 3 m fu January 18, 2025 8:16 am RIGHT KNEE January 21, 2025 7:59 am Cough,headache February 08, 2025 8: 31am Reason for Visit Admit Date Erectile dysfunction October 19, 2024 8: 15am Hypertension October 19, 2024 8:1 5am Obesity (BMI 30-39.9) October 19, 2024 8 :15am Performance anxiety October 19, 2024 8:1 5am Bilateral primary osteoarthritis of knee December 22, 2024 9:37am Left knee pain December 22, 2024 9:37 am Right knee pain December 22, 2024 9:37 am Bilateral primary osteoarthritis of knee January 18, 2025 8:16am Anxiety and depression January 18, 2025 8 :16am Erectile dysfunction January 18, 2025 8:1 6am Hypertension January 18, 2025 8:16 am Skin lesion January 18, 2025 8:16 am Bilateral primary osteoarthritis of knee January 21, 2025 7:59am Sinusitis, acute February 08, 2025 8: 31am Additional Source Comments (unrecognized sect ion and content) No Status Records FoundNo Status Records FoundNo Status Records Found INFORMATION SOURCE (unrecogn ized section and content) DATE CREATED AUTHOR 12/17/2017 [facility] ([place]) DATE CREATED AUTHOR AUTHOR'S ORGANIZ ATION 09/21/2021 [facility] DATE CREATED AUTHOR AUTHOR'S ORGANIZ ATION 04/26/2025 [facility] Care Teams (unrecognized sec tion and content) Team Status: Active Member Role Status Dates Dr. Silvestre Stanley MD Family Provider Active Dr. Silvestre Stanley MD Primary Care Provider Active Team Status: Inactive Member Role Status Dates Dr. Silvestre Stanley MD Primary Care Provider Active Start: October 19, 2024 End: October 19, 2024 Dr. Silvestre Stanley MD Attending Provider Active Start: October 19, 2024 End: October 19, 2024 Dr. Silvestre Stanley MD Referring Provider Active Start: October 19, 2024 End: October 19, 2024 Team Status: Active Member Role Status Dates Dr. Silvestre Stanley MD Primary Care Provider Active Start: December 22, 2024 Dr. Silvestre Stanley MD Referring Provider Active Start: December 22, 2024 Harlan Gaitan MD Attending Provider Active St art: December 22, 2024 Team Status: Inactive Member Role Status Dates Dr. Silvestre Stanley MD Primary Care Provider Active Start: December 22, 2024 End: December 22, 2024 Dr. Turner Dial MD Attending Provider Active S tart: December 22, 2024 End: December 22, 2024 Team Status: Inactive Member Role Status Dates Dr. Silvestre Stanley MD Primary Care Provider Active Start: December 22, 2024 End: December 22, 2024 Dr. Silvestre Stanley MD Referring Provider Active Start: December 22, 2024 End: December 22, 2024 Harlan Gaitan MD Attending Provider Active St art: December 22, 2024 End: December 22, 2024 Team Status: Active Member Role/Relationship Status Dates Dr. Silvestre Stanley MD Primary Care Provider Active Team Status: Inactive Member Role/Relationship Status Dates Dr. Silvestre Stanley MD Primary Care Provider Active Start: October 19, 2024 End: October 19, 2024 Dr. Silvestre Stanley MD Attending Provider Active Start: October 19, 2024 End: October 19, 2024 Dr. Silvestre Stanley MD Referring Provider Active Start: October 19, 2024 End: October 19, 2024 Team Status: Inactive Member Role/Relationship Status Dates Dr. Silvestre Stanley MD Primary Care Provider Active Start: December 22, 2024 End: December 22, 2024 Dr. Silvestre Stanley MD Referring Provider Active Start: December 22, 2024 End: December 22, 2024 Harlan Gaitan MD Attending Provider Active St art: December 22, 2024 End: December 22, 2024 Team Status: Inactive Member Role/Relationship Status Dates Dr. Silvestre Stanley MD Primary Care Provider Active Start: December 22, 2024 End: December 22, 2024 Dr. Turner Dial MD Attending Provider Active S tart: December 22, 2024 End: December 22, 2024 Team Status: Active Member Role/Relationship Status Dates Dr. Silvestre Stanley MD Primary Care Provider Active Start: January 14, 2025 Harlan Gaitan MD Attending Provider Active St art: January 14, 2025 Harlan Gaitan MD Referring Provider Active St art: January 14, 2025 Team Status: Inactive Member Role/Relationship Status Dates Dr. Silvestre Stanley MD Primary Care Provider Active Start: January 18, 2025 End: January 18, 2025 Dr. Silvestre Stanley MD Attending Provider Active Start: January 18, 2025 End: January 18, 2025 Dr. Silvestre Stanley MD Referring Provider Active Start: January 18, 2025 End: January 18, 2025 Team Status: Active Member Role/Relationship Status Dates Dr. Silvestre Stanley MD Primary Care Provider Active Start: January 18, 2025 Dr. Silvestre Stanley MD Attending Provider Active Start: January 18, 2025 Dr. Silvestre Stanley MD Referring Provider Active Start: January 18, 2025 Team Status: Inactive Member Role/Relationship Status Dates Dr. Silvestre Stanley MD Primary Care Provider Active Start: January 14, 2025 End: January 14, 2025 Harlan Gaitan MD Attending Provider Active St art: January 14, 2025 End: January 14, 2025 Harlan Gaitan MD Referring Provider Active St art: January 14, 2025 End: January 14, 2025 Team Status: Inactive Member Role/Relationship Status Dates Dr. Silvestre Stanley MD Primary Care Provider Active Start: January 21, 2025 End: January 21, 2025 Dr. Silvestre Stanley MD Referring Provider Active Start: January 21, 2025 End: January 21, 2025 Harlan Gaitan MD Attending Provider Active St art: January 21, 2025 End: January 21, 2025 Team Status: Inactive Member Role/Relationship Status Dates Dr. Silvestre Stanley MD Primary Care Provider Active Start: January 18, 2025 End: January 18, 2025 Dr. Silvestre Stanley MD Attending Provider Active Start: January 18, 2025 End: January 18, 2025 Dr. Silvestre Stanley MD Referring Provider Active Start: January 18, 2025 End: January 18, 2025 Team Status: Inactive Member Role/Relationship Status Dates Dr. Silvestre Stanley MD Primary Care Provider Active Start: February 08, 2025 End: February 08, 2025 Dr. Silvestre Stanley MD Referring Provider Active Start: February 08, 2025 End: February 08, 2025 NIMESH Ledezma Attending Provider Active Start: February 08, 2025 End: February 08, 2025 Goals (unrecognized section and content) Goals may be documented in a n alternate sectionGoals may be documented in an alternate sectionGoals may be documented in an alternate sectionGoals may be documented in an alternate sectionGoals may be documented in an alternate sectionGoals may be documented in an alternate sectionGoals may be documented in an alternate section FOR RECORDS PERTAINING TO PATIENTS WHO ARE OR HAVE BEEN ENROLLED IN A CHEMICAL DEPENDENCY/SUBSTANCEABUSE PROGRAM, SOME INFORMATION MAY BE OMITTED. This clinical summary was aggregated from multiple sources. Caution should be exercised in using it in the provision of clinical care. This summary normalizes information from multiple sources, and as a consequence, information in this document may materially change the coding, format and clinical context of patient data. In addition, data may be omitted in some cases. CLINICAL DECISIONS SHOULD BE BASED ON THE PRIMARY CLINICAL RECORDS. [facility] [employer] provides no warranty or guarantee of the accuracy or completeness of information in this document.
== END | disposition home or self-care (01) ==
LOC: SL 10:06
PROVIDERS: PCP Internal Medicine; Visit Provider Internal Medicine
DX: G47.30 Sleep apnea, unspecified (principal)